=== PATIENT | female | born 1945 | race African-American/Black ===

== ENCOUNTER 2017-01-06 16:47 | Emergency (ER) | payer MEDICARE, MEDICAID | END 2017-01-06 18:25 | disposition home or self-care (01) | LOC: ERS 16:47 | DX: Z43.1 Encounter for attention to gastrostomy (principal); E11.9 Type 2 diabetes mellitus without complications; K21.9 Gastro-esophageal reflux disease without esophagitis; F32.9 Major depressive disorder, single episode, unspecified; M15.0 Primary generalized (osteo)arthritis; Z79.899 Other long term (current) drug therapy | CPT/HCPCS: 43760; B4087 ==

== ENCOUNTER 2017-07-31 14:57 | Emergency (ER) | payer MEDICARE, OTHER ==
--- NOTE | 2017-07-31 16:02 | RAD ---
ABDOMEN ONE VIEW: 07/31/17 HISTORY: Tube check. COMPARISON: Radiographs 2017. FINDINGS: Contrast is seen in a tube to the gastric fundus and body. IMPRESSION: Contrast is seen within the stomach. POS: [facility]
[2017-07-31] MEDS ORDERED: GASTROGRAFIN 30 ML BOT ONE (16:42)
== END 2017-07-31 17:46 | disposition home or self-care (01) ==
LOC: ERS 14:57
DX: Z43.1 Encounter for attention to gastrostomy (principal); E11.9 Type 2 diabetes mellitus without complications; K21.9 Gastro-esophageal reflux disease without esophagitis; F03.90 Unspecified dementia, unspecified severity, without behavioral disturbance, psychotic disturbance, mood disturbance, and anxiety; F32.9 Major depressive disorder, single episode, unspecified; Z86.73 Personal history of transient ischemic attack (TIA), and cerebral infarction without residual deficits; Z79.899 Other long term (current) drug therapy
CPT/HCPCS: 43760; 74018

== ENCOUNTER 2018-01-24 12:11 | Observation (INO) | payer MEDICARE, MEDICAID ==
[2018-01-24] MEDS ORDERED: Dextrose 5 %-0.45 % NaCl 1,000 ML IV SCH (15:00)
[2018-01-24] MEDS ORDERED: Dextrose 5% in Water 1,000 ML IV PRN (15:05)
[2018-01-24] MEDS ORDERED: HumaLOG 300 UNITS/3 ML VIAL SC PRN ×2 (15:05)
[2018-01-24] MEDS ORDERED: Dextrose 50% Abboject 50 ML SYRINGE SLOW IVP PRN (15:05)
[2018-01-24] MEDS ORDERED: Acetaminophen 325 MG TAB PO PRN (15:05)
[2018-01-24] MEDS ORDERED: hydrALAZINE 20 MG/ML VIAL SLOW IVP PRN (15:05)
[2018-01-24 15:14] VITALS: BMI 17.6
[2018-01-24] MEDS: Dextrose 5 % And 0.9 % NaCl 1,000 ML IV SCH (16:14)
--- NOTE | 2018-01-24 19:59 | CON ---
DATE OF CONSULTATION: 01/24/2018 GI INPATIENT CONSULTATION NOTE REASON FOR CONSULTATION: PEG tube got pulled out. HISTORY OF PRESENT ILLNESS: Jen Draper is a 72-year-old woman, well known to me. I initially placed her PEG tube back in January 2014. She has profound dementia and adult failure to thrive, though her daughter states she is on a pureed diet still at her halfway. She has had several presentations over the past couple of years after having inadvertently removed her PEG tube; normally, this is always able to be replaced in ER without difficulty. She presents today from the halfway again after having inadvertently yanked her PEG tube. I am not exactly sure when this happened and I think it was earlier this morning. The ER physician attempted to pass a replacement PEG tube through the site, but was unable to do so. I also attempted to do this at bedside, but I was also unable to pass the replacement tube. There is no report of any other issues or symptoms. The patient herself does not meaningfully communicate. PAST MEDICAL HISTORY: Severe Alzheimer dementia, gastroesophageal reflux disease, CVA, diabetes, osteoarthritis, contractures, and depression. SOCIAL HISTORY: She is at a halfway. She has supportive family. No smoking, alcohol, or drug use. FAMILY HISTORY: Noncontributory. ALLERGIES: ASPIRIN AND AVOCADO. MEDICATIONS: 1. Baclofen. 2. MiraLAX. 3. Mirtazapine. 4. Pepcid AC. 5. Tramadol. 6. Trazodone. REVIEW OF SYSTEMS: Unable to obtain from the patient due to her nonverbal status. PHYSICAL EXAMINATION: VITAL SIGNS: Blood pressure 94/69 and pulse 66. GENERAL: 72-year-old woman, lying in bed comfortably, in no acute distress. MENTAL: She is awake and alert, but not oriented. She provides no verbal or otherwise meaningful communication. She does not follow commands. EYES: No scleral icterus. Extraocular movements intact. ENT: Mucous membranes moist. No oral lesions. LYMPH NODES: No submandibular or supraclavicular lymphadenopathy. THYROID: Nontender to palpation. HEART: Regular rate and rhythm. LUNGS: Clear to auscultation bilaterally. ABDOMEN: Nondistended. Bowel sounds are present. The PEG site at the left upper quadrant is irritated with what appears to be some granulation tissue and some stricturing. I am unable to pass a 20-[place]zech replacement PEG tube through the stoma. EXTREMITIES: No peripheral edema. NEUROLOGIC: She has severe contractures, basically lying on her left side in the position. She does not follow commands. VESSELS: Radial pulses 2+ bilaterally. ASSESSMENT AND PLAN: 1. Alzheimer dementia. 2. Adult failure to thrive. 3. Percutaneous endoscopic gastrostomy tube complication, was inadvertently removed. Unfortunately, I am unable to pass a replacement PEG tube at bedside today. The patient is going to need to be admitted for overnight observation, and we will plan to place a new PEG tube in the operating room tomorrow. I have discussed this with Dr. Campos as well as with the patient's family and they are in agreement. I expect if everything goes well, she could be discharged back to her facility later in the day tomorrow or perhaps the following day. Plan is for the patient to be admitted to the hospitalist service. Job ID: [id number]
--- NOTE | 2018-01-24 20:14 | HP ---
PRIMARY CARE PHYSICIAN: Dr. Gutierrez. CHIEF COMPLAINT: The patient pulled PEG tube out. HISTORY OF PRESENT ILLNESS: Ms. Draper is a pleasant 72-year-old female, who has advanced dementia. Her daughter is at the bedside and offers the history. She has been basically noncommunicative since 2008 due to advanced Alzheimer's disease and about 4 years ago, she stopped walking and also had stopped eating and for this reason, a PEG tube was placed in 2013. Since then, she has been residing in a nursing facility. She apparently pulled her PEG tube out once again today. She pulled it out previously back in August and had it replaced. The ER physician tried to replace the PEG tube, but was unable to. Her project specialist, Dr. Peoples, was called and tried to replace it as well, but was not able to either. Apparently, there was quite a bit of resistance that was met. Also noted that the patient has fairly severe contractures as well. For this reason, she is being placed in observation so that the PEG tube can be replaced. REVIEW OF SYSTEMS: This is unobtainable as the patient is nonverbal and unable to give any input. PAST MEDICAL HISTORY: Significant for advanced dementia as well as diabetes mellitus type 2. PAST SURGICAL HISTORY: She has had a as well as the PEG tube placed in 2013. ALLERGIES: TO ASPIRIN AND AVOCADO. SOCIAL HISTORY: She is a nonsmoker and nondrinker. She is common-law and her medical power of contracts attorney is Teodora Draper and this is her daughter. CODE STATUS: She says she "hasn't really thought about it, but knows that she needs to." Therefore, it is a full code. FAMILY HISTORY: Significant for depression, hypertension, diabetes, and heart failure. CURRENT MEDICATIONS: Her current medications are taken from the emergency room records and includes; 1. Baclofen 10 mg per tube twice a day. 2. MiraLAX 17 g daily. 3. Mirtazapine 7.5 mg at bedtime. 4. Pepcid 10 mg as needed. 5. Tramadol 25 mg q.4 as needed. 6. Trazodone 50 mg daily. PHYSICAL EXAMINATION: GENERAL: She is awake and alert. She appears comfortable. She is well-developed and well-nourished; however, she does have contractures in the left hand and wrist as well as both legs. VITAL SIGNS: Blood pressure 137/80, heart rate 78, respiratory rate is 16, temperature is 97.8, and O2 saturation is 98% on room air. HEENT: Her pupils are equal, round, and reactive. Extraocular muscles are intact. Her sclerae are anicteric. THROAT: There is no erythema, no exudates. NECK: No adenopathy. No bruits. LUNGS: Clear to auscultation. No wheezing. No rales. CARDIOVASCULAR: She has a normal S1 and S2. There is no S3 or S4. No murmurs, clicks, or rubs. ABDOMEN: Soft. The PEG tube site was noted. There was no induration, no erythema, no drainage. Bowel sounds are positive. EXTREMITIES: Her legs are contracted, but there is no visible skin breakdown. No lesions. NEUROLOGIC: Difficult to assess. She is disoriented and can move all extremities. SKIN AND INTEGUMENT: Again, no skin breakdown. No rash. LABORATORY DATA: Currently, there are no current lab results for review. ASSESSMENT: This is a 72-year-old female, who has inadvertently dislodged her percutaneous endoscopic gastrostomy tube. They were unable to replace it in the ER possibly due to her contracted status. She will be placed in observation. Gastroenterology will be consulted and hopefully, the percutaneous endoscopic gastrostomy tube can be replaced. 1. Advanced dementia. She is noncommunicative. I spoke with the daughter with regard to advance directives and suggested that she and her family start thinking about these issues, especially when she is stable, that way they do not have to make a rash decision in an emergency and emotional situation. She voiced understanding and says that she is going to talk with her other siblings regarding her advanced directives and code status. 2. Diabetes mellitus. Her daughter says that she is basically diet-controlled now on this. We will just place her on a sliding scale as needed. Job ID: [id number]
[2018-01-25] MEDS: Dextrose 5 % And 0.9 % NaCl 1,000 ML IV SCH ×2 (05:49→17:43)
[2018-01-25 06:47] LABS: Hemoglobin 11.1 g/dL (12.0-16.0); Lymphocytes 50 % (21-51); MDiff Complete? YES; Mean Corpuscular HGB CONC 32.6 g/dL (32.0-36.0); Mean Corpuscular Hemoglobin 29.4 pg (27.0-31.0); Mean Corpuscular Volume 90.3 fL (78.0-98.0); Monocytes 8 % (0-10); Neutrophil 42 % (42-75); Platelet Count 154 thou/uL (130-400); Red Blood Cell (RBC) Count 3.78 mill/uL (4.20-5.40); White Blood Cell (WBC) Count 6.4 thou/uL (4.8-10.8)
[2018-01-25 06:55] LABS: Anion Gap 13 mmol/L (10-20); BUN (Urea Nitrogen) 12 mg/dL (9.8-20.1); Calc. Creatinine Clearance 69 mL/min (70-130); Calcium 9.1 mg/dL (7.8-10.44); Carbon Dioxide 23 mmol/L (23-31); Chloride 111 mmol/L (98-107); Estimated GFR-MDRD Greater than 90; Glucose 111 mg/dL (83-110); Potassium 4.6 mmol/L (3.5-5.1); Sodium 142 mmol/L (136-145)
[2018-01-25] MEDS: Enoxaparin Sodium 40 MG/0.4 ML SYRINGE SC SCH (08:39)
--- NOTE | 2018-01-25 10:50 | PDOC.PN ---
- Subjective Encounter Start Date: 01/25/18 Encounter Start Time: 10:48 -: non-verbal Ms. Draper was seen today in follow-up of dislodged PEG tube. She is resting comfortably. She awakes and smiles. Her daughter is at the bedside. - Objective Resuscitation Status - Order Detail: 01/24/18 14:36 Resuscitation Status Routine Resuscitation Status: FULL: Full Resuscitation MAR Reviewed: Yes Vital Signs & Weight: Vital Signs (12 hours) Temp Pulse Resp BP Pulse Ox 01/25/18 07:39 98.0 F 63 20 114/73 100 01/25/18 04:00 97.4 F L 63 16 129/70 100 01/25/18 00:00 97.3 F L 67 18 126/78 99 Weight Weight 109 lb I&O: 01/24/18 01/25/18 01/26/18 06:59 06:59 06:59 Intake Total 1900 Balance 1900 Result Diagrams: 01/25/18 05:38 01/25/18 05:38 Additional Labs: Accuchecks 01/25/18 01/24/18 01/24/18 05:49 19:32 15:34 POC Glucose 114 H 113 H 75 Phys Exam - Physical Examination HEENT: PERRLA Respiratory: no wheezing, no rales, no rhonchi, clear to auscultation bilateral Cardiovascular: RRR, no significant murmur, no rub Gastrointestinal: soft, no distention, positive bowel sounds + mild tenderness around PEG site Musculoskeletal: no edema, pulses present + Lower extremity contractures Dx/Plan (1) PEG tube malfunction Code(s): K94.23 - GASTROSTOMY MALFUNCTION Status: Acute (2) Diabetes mellitus type 2 in nonobese Code(s): E11.9 - TYPE 2 DIABETES MELLITUS WITHOUT COMPLICATIONS Status: Chronic (3) Dementia in Alzheimer's disease Code(s): G30.9 - ALZHEIMER'S DISEASE, UNSPECIFIED; F02.80 - DEMENTIA IN OTH DISEASES CLASSD ELSWHR W/O BEHAVRL DISTURB Status: Chronic - Plan * Dislodged PEG tube- plan is to have this replaced by [employer] * DM- blood glucose isstable * Advanced Dementia-stable.
[2018-01-25] MEDS ORDERED: CEFAZOLIN 2 GM/50 ML BAG ONE (12:47)
[2018-01-25] MEDS ORDERED: Promethazine HCl 25 MG/ML VIAL IM PRN (13:23)
[2018-01-25] MEDS ORDERED: Ondansetron HCl/PF 4 MG/2 ML Vial IVP PRN (13:23)
[2018-01-25] MEDS ORDERED: Promethazine HCl 25 MG/ML VIAL SLOW IVP PRN (13:23)
[2018-01-25] MEDS ORDERED: CEFAZOLIN 2 GM/50 ML-DEXTROSE 2 GM in Premix Bag 1 BAG IVPB ONE (13:29)
--- NOTE | 2018-01-25 17:04 | OP ---
DATE OF PROCEDURE: 01/25/2018 PROCEDURE PERFORMED: Esophagogastroduodenoscopy with percutaneous gastrostomy tube placement. INDICATION FOR PROCEDURE: Dysphagia, [id number] protein-calorie malnutrition, advanced dementia. DESCRIPTION OF PROCEDURE: After the risks and benefits of the procedure were explained to the patient's surrogate (daughter/medical power of deputy county attorney) including risks of bleeding, infection, perforation, reactions to anesthesia, aspiration, and/or pain, informed consent was obtained. The patient was then taken to the endoscopy suite, where deep sedation was administered via propofol and anesthesia support. Prior to the procedure, 2 g of Ancef was administered via IV piggyback for postsurgical antibiotic prophylaxis. Once adequate sedation was achieved, the standard gastroscope was introduced into the mouth with intubation of the esophagus, stomach, and the proximal small intestines with the findings listed below. After the initial examination, the gastroscope was positioned within the stomach itself with good one-to-one compression and transillumination achieved. Once given these markers, we proceeded with percutaneous gastrostomy tube placement. Using a small finder needle, 1% lidocaine was instilled into the skin at the prior PEG tube site and then placing the needle perpendicular to skin it was advanced with back pressure into the anterior wall of the stomach. The needle was then withdrawn with instillation of copious amounts of lidocaine upon withdrawal. An aspiration needle was then advanced through the prior PEG tube stoma and into the stomach without difficulty. A guidewire was then advanced through the aspiration needle catheter after removal of the needle itself, which was then caught on the inside via snare introduced through the gastroscope. The gastroscope was then withdrawn through the esophagus and the mouth carrying the guidewire with it with maintaining stability of the guidewire at all times. The percutaneous gastrostomy tube was then affixed to the guidewire and using a push technique, it was then advanced into the stomach and through the anterior gastric and abdominal wall with approximately 3.5 cm seen at the skin. The external bumper and adapter were then affixed to the percutaneous gastrostomy tube after cutting to length. The gastroscope was then introduced back into the mouth for evaluation of the stomach with adequate placement of the percutaneous gastrostomy tube that was easily mobile and rotated approximately 720 degrees at which point, all equipment was removed from the patient and the procedure terminated. The patient was then taken to PACU in satisfactory condition. FINDINGS: Esophagus: Normal-appearing mucosa was seen in the proximal mid and distal esophagus. There was no evidence of erosions, ulcerations, mass lesions, or active/recent bleeding. Stomach: Normal-appearing mucosa was seen in the gastric cardia, fundus, body, greater curvature, antrum, and incisura except for the prior PEG tube site, which was noted along the greater curvature near the junction of the fundus and body. The prior PEG tube site appeared to be in a stage of healing without any overt ulceration at the site or bleeding within the region. Otherwise, there was no evidence of erosions, ulcerations, mass lesions, or active/recent bleeding. Duodenum: Normal-appearing mucosa was seen in both the duodenal bulb and second portion of the duodenum. There was no evidence of erosions, ulcerations, or active/recent bleeding. IMPRESSION: 1. Normal upper endoscopy via esophagogastroduodenoscopy findings. 2. Successful placement of a [place] scientific 20-[place] percutaneous gastrostomy tube through the prior percutaneous endoscopic gastrostomy tube site. RECOMMENDATIONS: 1. The patient to be transferred back to [facility] for observation postprocedure. I would pull this patient overnight for any potential postprocedural complications. 2. We would consult dietary services for recommendations regarding tube feeds and rate of tube feeds. 3. We would hold any tube feeds for the next 6 to 8 hours. If no evidence of immediate complications, we then start the tube feeds per PEG tube protocol dictated by dietary services. 4. We would encourage standard PEG tube care including keeping the site clean and as dry as possible, maintaining a 1 cm distance between the external bumper in the skin without the placement of gauze underneath the external bumper, would refrain from any bathing or swimming within the next [address] would place an abdominal binder on this patient and have it maintained at all times given her propensity to remove PEG tubes in the past. We will continue to follow. Please call with any questions. Job ID: [id number]
[2018-01-26] MEDS: Dextrose 5 % And 0.9 % NaCl 1,000 ML IV SCH (06:17)
[2018-01-26] MEDS: Enoxaparin Sodium 40 MG/0.4 ML SYRINGE SC SCH (07:31)
[2018-01-26 12:21] VITALS: BP 144/75; TEMP 98.5
--- NOTE | 2018-01-26 19:23 | DIS ---
DATE OF ADMISSION: 01/24/2018 DATE OF DISCHARGE: 01/26/2018 DISCHARGE DISPOSITION: To [facility]. ALLERGIES: THE PATIENT IS ALLERGIC TO ASPIRIN. THE PATIENT WAS SEEN AND EXAMINED ON THE DAY OF DISCHARGE. DENIES ANY NEW COMPLAINTS. DISCHARGE MEDICATIONS: Same as admission medications. INPATIENT PROCEDURES: 1. On 01/25/2018, the patient underwent esophagogastroduodenoscopy with percutaneous endoscopic gastrostomy tube placement. 2. Abdominal binder has been placed. BRIEF HOSPITAL COURSE: The patient is a 72-year-old female, alf resident, with dementia, was brought into the hospital from the alf since she had pulled the PEG tube. The patient underwent PEG tube placement yesterday without any complications. PEG tube feeding has been resumed. Abdominal binder was recommended by Gastroenterology. FINAL DIAGNOSES: 1. Percutaneous endoscopic gastrostomy tube complication. The percutaneous endoscopic gastrostomy tube was removed by the patient. This has been replaced. 2. Alzheimer dementia. 3. Diabetes mellitus, type 2. 4. Chronic anemia. 5. Moderate protein-calorie malnutrition. PLAN: Plan of care was discussed with the family in detail, they stated understanding. Job ID: [id number]
== END 2018-01-26 13:35 ==
LOC: ERS 12:11 → T4-A 13:53
PROVIDERS: ADMIT Internal Medicine; ATTEND Internal Medicine
PROC: 0DH63UZ Insertion of Feeding Device into Stomach, Percutaneous Approach (ICD-10-PCS; principal; 2018-01-24)
DX: Z43.1 Encounter for attention to gastrostomy (principal); E43 Unspecified severe protein-calorie malnutrition; Z68.1 Body mass index [BMI] 19.9 or less, adult; E11.9 Type 2 diabetes mellitus without complications; D64.9 Anemia, unspecified; G30.9 Alzheimer's disease, unspecified; F02.80 Dementia in other diseases classified elsewhere, unspecified severity, without behavioral disturbance, psychotic disturbance, mood disturbance, and anxiety; Z88.6 Allergy status to analgesic agent; Z91.018 Allergy to other foods; Z79.899 Other long term (current) drug therapy
CPT/HCPCS: 43246; 80048; 82962 ×3; 85025; 96360; 96361 ×3; 96372; 99284; G0378 ×2; 36415; 36416; G8996-GN-CK; J1650

== ENCOUNTER 2018-11-20 07:55 | Emergency (ER) | payer MEDICARE, MEDICAID ==
[2018-11-20 08:44] LABS: #Basophils 0.1 thou/uL (0.0-0.2); #Eosinphils 0.1 thou/uL (0.0-0.7); #Lymphocytes 2.6 thou/uL (1.20-3.40); #Monocytes 0.5 thou/uL (0.11-0.59); #Neutrophils 2.5 thou/uL (1.40-6.50); %Basophils 1.6 % (0.0-1.0); %Eosinophils 1.5 % (0.0-10.0); %Lymphocytes 44.9 % (21.0-51.0); %Monocytes 8.2 % (0.0-10.0); %Neutrophils 43.8 % (42.0-75.0); Hemoglobin 12.2 g/dL (12.0-16.0); Mean Corpuscular HGB CONC 31.9 g/dL (32.0-36.0); Mean Corpuscular Volume 90.7 fL (78.0-98.0); Mean Platelet Volume 8.5 fL (7.4-10.4); Platelet Count 281 thou/uL (130-400); RBC Distribution Width 12.7 % (11.5-14.5); Red Blood Cell (RBC) Count 4.21 mill/uL (4.20-5.40); White Blood Cell (WBC) Count 5.7 thou/uL (4.8-10.8)
[2018-11-20 09:06] LABS: ALT (SGPT) 8 U/L (8-55); AST (SGOT) 14 U/L (5-34); Albumin 3.4 g/dL (3.4-4.8); Alkaline Phosphatase 91 U/L (40-110); Anion Gap 14 mmol/L (10-20); BUN (Urea Nitrogen) 11 mg/dL (9.8-20.1); Bilirubin, Total 0.2 mg/dL (0.2-1.2); Calc. Creatinine Clearance 0 mL/min (70-130); Calcium 9.2 mg/dL (7.8-10.44); Carbon Dioxide 20 mmol/L (23-31); Chloride 108 mmol/L (98-107); Estimated GFR-MDRD Greater than 90; Globulin 3.8 g/dL (2.4-3.5); Glucose 118 mg/dL (83-110); Potassium 4.3 mmol/L (3.5-5.1); Protein, Total 7.2 g/dL (6.0-8.3); Sodium 138 mmol/L (136-145)
[2018-11-20 10:10] LABS: Bacteria/HPF 4+ HPF (None Seen); Bilirubin Negative (Negative); Blood, Urine Trace (Negative); Clarity Turbid (Clear); Glucose, Urine (Dipstick) Normal (Negative); Leukocyte Negative Leu/uL (Negative); Nitrite 2+ (Negative); Protein, Urine (Dipstick) 10 mg/dL (Neg-Trace); Squamous Epithelial 0-3 HPF (0-3)
[2018-11-20] MEDS ORDERED: cefTRIAXone\\ROCEPHIN 1 GM VIAL ONE (10:26)
--- NOTE | 2018-11-20 10:39 | CT ---
CT OF HEAD NONCONTRAST: COMPARISON: 12/22/2013. INDICATION: Altered mental status. FINDINGS: There is persistent dilatation of the ventricular system with severe chronic ischemic disease of the cerebral white matter. No new hemorrhage, mass effect, or midline shift. No depressed calvarial fra cture or pneumocephalus. IMPRESSION: Persistent ventriculomegaly, progressive in volume with prominent periventricular white matter hypoat tenuation. While a component is due to parenchymal atrophy and microvascular ischemic disease, recom mend clinical correlation to exclude signs/symptoms of normal-pressure hydrocephalus given the progre ssive ventriculomegaly from the comparison exam. POS: [facility]
--- NOTE | 2018-11-20 13:06 | RAD ---
FRONTAL VIEW CHEST: INDICATION: AMS. FINDINGS: There is limited evaluation due to patient positioning and inability to tolerate positional adjustmen t for the exam. This does limit evaluation of the upper chest, notably the right apex as well as exc ludes portions of the lung bases. Lungs are hyperinflated without a discrete area of consolidation o r significant effusion. Cardiomediastinal silhouette is accentuated. IMPRESSION: Limited exam. No definite evidence of focal consolidation. POS: [facility]
--- NOTE | 2018-11-23 16:53 | EKG ---
Test Reason : Blood Pressure : / mmHG Vent. Rate : 081 BPM Atrial Rate : 081 BPM P-R Int : 154 ms QRS Dur : 056 ms QT Int : 378 ms P-R-T Axes : 053 -21 -08 degrees QTc Int : 439 ms Sinus rhythm Inferior infarct , age undetermined Abnormal ECG Confirmed by CYNDI COLE DO ([id number]), editor school photograph DARRIN TERRY ([id number]) on 11/23/2018 4:52:35 PM Referred By: Confirmed By:CYNDI COLE DO
== END 2018-11-20 13:43 | disposition home or self-care (01) ==
LOC: ERS 07:55
DX: R56.9 Unspecified convulsions (principal); N30.00 Acute cystitis without hematuria; E11.9 Type 2 diabetes mellitus without complications
CPT/HCPCS: 36415; 36416; 51701; 70450; 71045; 80053; 81003; 81015; 84484; 85025; 93005; 96374; A4353; J0696

== ENCOUNTER 2019-03-08 08:31 | Emergency (ER) | payer MEDICARE, MEDICAID ==
--- NOTE | 2019-03-08 09:49 | RAD ---
Exam: Single view of the pelvis HISTORY: Pelvic and hip pain after being found down on the floor COMPARISON: None FINDINGS: This exam is limited secondary to rotation of the patient's legs. A single view the pelvis shows no evidence of acute fracture or dislocation. No degenerative changes seen in either hip. IMPRESSION: No evidence of acute osseous abnormality on this limited exam.
--- NOTE | 2019-03-08 09:52 | CT ---
EXAM: CT brain without contrast HISTORY: Found down on the floor curled up in a ball. Altered mental status COMPARISON: 11/20/2018 TECHNIQUE: Multiple contiguous axial images were obtained and a CT of the brain without contrast. FINDINGS: There are scattered hypodensities in the subcortical and periventricular white matter consi stent with small vessel ischemic disease. There is ex vacuo dilatation of the lateral ventricles secondary to cerebral atrophy. There is no evidence of hydrocephalus, intracranial hemorrhage, or ext ra-axial fluid collection. The calvarium and overlying soft tissues are unremarkable. The visualized paranasal sinuses and masto id air cells are well aerated. IMPRESSION: No evidence of acute intracranial abnormality
[2019-03-08 09:54] LABS: ALT (SGPT) 13 U/L (8-55); AST (SGOT) 15 U/L (5-34); Albumin 3.5 g/dL (3.4-4.8); Alkaline Phosphatase 108 U/L (40-110); Anion Gap 13 mmol/L (10-20); BUN (Urea Nitrogen) 13 mg/dL (9.8-20.1); Bilirubin, Total 0.3 mg/dL (0.2-1.2); CK (CPK) 77 U/L (29-168); Calc. Creatinine Clearance 0 mL/min (70-130); Carbon Dioxide 26 mmol/L (23-31); Chloride 107 mmol/L (98-107); Estimated GFR-MDRD Greater than 90; Globulin 3.6 g/dL (2.4-3.5); Glucose 101 mg/dL (83-110); Potassium 4.6 mmol/L (3.5-5.1); Protein, Total 7.1 g/dL (6.0-8.3); Sodium 141 mmol/L (136-145)
[2019-03-08 10:07] LABS: #Eosinphils 0.1 thou/uL (0.0-0.7); #Lymphocytes 2.4 thou/uL (1.20-3.40); #Monocytes 0.4 thou/uL (0.11-0.59); #Neutrophils 3.5 thou/uL (1.40-6.50); %Basophils 0.7 % (0.0-1.0); %Eosinophils 1.1 % (0.0-10.0); %Monocytes 6.3 % (0.0-10.0); Hemoglobin 12.3 g/dL (12.0-16.0); Mean Corpuscular HGB CONC 31.7 g/dL (32.0-36.0); Mean Corpuscular Hemoglobin 29.1 pg (27.0-31.0); Mean Corpuscular Volume 91.6 fL (78.0-98.0); Mean Platelet Volume 8.8 fL (7.4-10.4); Platelet Count 240 thou/uL (130-400); Red Blood Cell (RBC) Count 4.22 mill/uL (4.20-5.40); White Blood Cell (WBC) Count 6.4 thou/uL (4.8-10.8)
--- NOTE | 2019-03-08 11:02 | RAD ---
EXAM: Single view of the chest HISTORY: Found on floor with altered mental status. COMPARISON: 11/20/2018 FINDINGS: Single view of the chest shows a normal sized cardiomediastinal silhouette. Lucent line pr ojecting over the left chest wall likely represent skin folds as lung markings are seen peripheral to these lines. There is no evidence of consolidation, mass, or pleural effusion. The bones are unre markable. IMPRESSION: No evidence of acute cardiopulmonary disease
[2019-03-08 13:24] LABS: Bacteria/HPF 2+ HPF (None Seen); Bilirubin Negative (Negative); Blood, Urine 1+ (Negative); Clarity Turbid (Clear); Glucose, Urine (Dipstick) Normal (Negative); Leukocyte 500 Leu/uL (Negative); Nitrite 2+ (Negative); Protein, Urine (Dipstick) Negative (Neg-Trace); Squamous Epithelial None Seen HPF (0-3); Urobilinogen Normal mg/dL (Less than 2)
== END 2019-03-08 15:58 | disposition home or self-care (01) ==
LOC: ERS 08:31
DX: N39.0 Urinary tract infection, site not specified (principal); M19.90 Unspecified osteoarthritis, unspecified site; E11.9 Type 2 diabetes mellitus without complications; K21.9 Gastro-esophageal reflux disease without esophagitis; G30.9 Alzheimer's disease, unspecified; F02.80 Dementia in other diseases classified elsewhere, unspecified severity, without behavioral disturbance, psychotic disturbance, mood disturbance, and anxiety; F32.9 Major depressive disorder, single episode, unspecified; Z86.73 Personal history of transient ischemic attack (TIA), and cerebral infarction without residual deficits; Z79.899 Other long term (current) drug therapy
CPT/HCPCS: 36415; 51701; 70450; 71045; 72170; 80053; 81003; 81015; 82550; 84484; 85025; 93005; A4353

== ENCOUNTER 2020-03-31 13:46 | Inpatient (IN) | payer MEDICARE, MEDICAID ==
[2020-03-31] MEDS ORDERED: cefTRIAXone\\ROCEPHIN 2 GM VIAL ONE (14:13)
[2020-03-31 14:19] LABS: #Basophils 0.1 thou/uL (0.0-0.2); #Lymphocytes 1.4 thou/uL (1.20-3.40); #Monocytes 0.9 thou/uL (0.11-0.59); #Neutrophils 9.1 thou/uL (1.40-6.50); %Basophils 0.5 % (0.0-1.0); %Eosinophils 0.1 % (0.0-10.0); %Lymphocytes 12.5 % (21.0-51.0); %Monocytes 7.4 % (0.0-10.0); %Neutrophils 79.5 % (42.0-75.0); Hemoglobin 11.8 g/dL (12.0-16.0); Mean Corpuscular HGB CONC 30.9 g/dL (32.0-36.0); Mean Corpuscular Hemoglobin 28.5 pg (27.0-31.0); Mean Corpuscular Volume 92.3 fL (78.0-98.0); Mean Platelet Volume 9.9 fL (7.4-10.4); Platelet Count 292 thou/uL (130-400); RBC Distribution Width 12.9 % (11.5-14.5); Red Blood Cell (RBC) Count 4.15 mill/uL (4.20-5.40); White Blood Cell (WBC) Count 11.4 thou/uL (4.8-10.8)
[2020-03-31 14:24] LABS: Prothrombin Time 13.4 sec (12.0-14.7)
[2020-03-31 14:25] LABS: PTT 31.9 sec (22.9-36.1)
[2020-03-31 14:31] LABS: Bacteria/HPF 4+ HPF (None Seen); Bilirubin Negative (Negative); Blood, Urine 2+ (Negative); Clarity Clear (Clear); Glucose, Urine (Dipstick) Greater than 1000 mg/dL (Negative); Ketone, Urine 10 mg/dL (Negative); Leukocyte Negative Leu/uL (Negative); Nitrite Negative (Negative); Protein, Urine (Dipstick) Negative (Neg-Trace); Squamous Epithelial 0-3 HPF (0-3); Urobilinogen Normal mg/dL (Less than 2); pH, Urine 5.5 (5.0-9.0)
[2020-03-31 14:38] LABS: ALT (SGPT) 14 U/L (8-55); AST (SGOT) 16 U/L (5-34); Albumin 2.9 g/dL (3.4-4.8); Alkaline Phosphatase 110 U/L (40-110); Anion Gap 15 mmol/L (10-20); BUN (Urea Nitrogen) 28 mg/dL (9.8-20.1); Bilirubin, Total 0.2 mg/dL (0.2-1.2); Calc. Creatinine Clearance 0 mL/min (70-130); Calcium 8.6 mg/dL (7.8-10.44); Carbon Dioxide 30 mmol/L (23-31); Chloride 113 mmol/L (98-107); Globulin 3.9 g/dL (2.4-3.5); Lipase 26 U/L (8-78); Potassium 3.8 mmol/L (3.5-5.1); Protein, Total 6.8 g/dL (5.8-8.1); Sodium 154 mmol/L (136-145)
[2020-03-31 14:48] LABS: Glucose 692 mg/dL (83-110)
[2020-03-31] MEDS ORDERED: Insulin Regular 300 UNITS/3 ML VIAL ONE ×2 (15:11→15:12)
[2020-03-31] MEDS ORDERED: INSULIN REGULAR IN 0.9 % NACL 100 UNIT/100 ML BAG ONE (15:11)
[2020-03-31] MEDS ORDERED: Insulin Regular 100 units/100 ml in NS IVPB SCH (15:15)
[2020-03-31] MEDS ORDERED: Potassium Chloride 20 MEQ in Premix Bag 1 BAG IVPB SCH (15:15)
[2020-03-31] MEDS ORDERED: Insulin Regular 300 UNITS/3 ML VIAL SC SCH (15:15)
[2020-03-31] MEDS ORDERED: 1/2 NS w/KCL 20 mEq 1,000 ML IV SCH (15:30)
[2020-03-31] MEDS ORDERED: INSULIN REGULAR IN 0.9 % NACL 100 UNIT in Premix Bag 1 BAG IVPB SCH (15:30)
[2020-03-31] MEDS ORDERED: NS 0.9% w/ 20 MEQ KCL 1,000 ML IV SCH (15:30)
[2020-03-31 15:34] LABS: Phosphorus 2.9 mg/dL (2.3-4.7)
[2020-03-31] MEDS ORDERED: Ondansetron PF 4 MG/2 ML Vial IVP PRN (16:00)
[2020-03-31] MEDS ORDERED: Polyethylene Glycol 3350 17 GM Packet PER TUBE PRN (16:53)
[2020-03-31 17:18] LABS: SARS-CoV-2 NAA Rapid Test Not Detected (NotDetected)
[2020-03-31 17:27] LABS: Hemoglobin A1c 8.2 % (4.0-6.0)
[2020-03-31 17:54] LABS: Anion Gap 17 mmol/L (10-20); BUN (Urea Nitrogen) 25 mg/dL (9.8-20.1); Calc. Creatinine Clearance 0 mL/min (70-130); Calcium 8.2 mg/dL (7.8-10.44); Carbon Dioxide 25 mmol/L (23-31); Chloride 118 mmol/L (98-107); Glucose 441 mg/dL (83-110); Potassium 4.4 mmol/L (3.5-5.1); Sodium 156 mmol/L (136-145)
[2020-03-31 19:30] VITALS: BMI 16.7
[2020-03-31] MEDS: Baclofen 10 MG TAB PER TUBE SCH ×2 (21:20→21:42)
[2020-03-31] MEDS ORDERED: Dextrose 50% Abboject 50 ML SYRINGE SLOW IVP PRN (21:45)
[2020-03-31] MEDS ORDERED: HUMULIN R 100 UNITS in Sodium Chloride 0.9% 100 ML IVPB SCH (21:45)
[2020-03-31] MEDS ORDERED: Dextrose 5% in Water 1,000 ML IV PRN (21:45)
[2020-03-31] MEDS ORDERED: Dextrose 5 %-0.45 % NaCl 1,000 ML IV PRN (21:45)
[2020-03-31] MEDS ORDERED: NS 0.9% w/ 20 MEQ KCL 1,000 ML/1,000 ML BAG IV PRN ×2 (21:45)
[2020-03-31] MEDS ORDERED: ADD ELECTROLYTE REPLACEMENT SET TO PROFILE FS SCH (21:45)
[2020-03-31] MEDS ORDERED: Insulin Regular 300 UNITS/3 ML VIAL IVP SCH (21:45)
[2020-03-31] MEDS ORDERED: Sodium Chloride 0.9% 1,000 ML IV PRN ×4 (21:45)
[2020-03-31 22:41] LABS: Anion Gap 12 mmol/L (10-20); BUN (Urea Nitrogen) 22 mg/dL (9.8-20.1); Calc. Creatinine Clearance 64 mL/min (70-130); Calcium 8.2 mg/dL (7.8-10.44); Carbon Dioxide 29 mmol/L (23-31); Chloride 121 mmol/L (98-107); Glucose 181 mg/dL (83-110); Sodium 158 mmol/L (136-145)
[2020-03-31 23:25] LABS: Base Excess-Venous 6.7 mmol/L (-2.0 to 3.0); Bicarbonate (HCO3v) 30.7 mmol/L (22.0-28.0); CO2 Tension (PvCO2) 40.8 mmHg (40.0-50.0); Calcium, Ionized 1.01 mmol/L (1.15-1.33); Chloride 120 mmol/L (98-107); Hemoglobin - Calc 13.6 g/dL (12.0-16.0); Potassium 3.9 mmol/L (3.5-5.1); Sodium 159 mmol/L (138-145); vO2 Saturation-calc 99.6 % (60.0-85.0)
[2020-03-31] MEDS: D5 1/2 NS w/20 mEq KCL 1,000 ML IV PRN (23:44)
[2020-04-01] MEDS ORDERED: Insulin Glargine 5 UNITS in Pre-Filled Syringe 1 EACH SC SCH (00:30)
[2020-04-01 01:46] LABS: Anion Gap 12 mmol/L (10-20); BUN (Urea Nitrogen) 20 mg/dL (9.8-20.1); Calc. Creatinine Clearance 70 mL/min (70-130); Carbon Dioxide 25 mmol/L (23-31); Chloride 122 mmol/L (98-107); Glucose 265 mg/dL (83-110); Potassium 4.5 mmol/L (3.5-5.1); Sodium 154 mmol/L (136-145)
[2020-04-01] MEDS ORDERED: HumaLOG 300 UNITS/3 ML VIAL SC PRN (02:30)
[2020-04-01] MEDS ORDERED: Dextrose 5% in Water 1,000 ML IV PRN (02:30)
[2020-04-01] MEDS ORDERED: Dextrose 50% Abboject 50 ML SYRINGE SLOW IVP PRN (02:30)
[2020-04-01] MEDS: HumaLOG 300 UNITS/3 ML VIAL SC PRN ×6 (02:50→20:47)
[2020-04-01] MEDS: D5 1/2 NS w/20 mEq KCL 1,000 ML IV PRN ×4 (04:18→19:38)
[2020-04-01 05:27] LABS: #Lymphocytes 3.7 thou/uL (1.20-3.40); #Monocytes 1.1 thou/uL (0.11-0.59); #Neutrophils 10.2 thou/uL (1.40-6.50); %Basophils 0.1 % (0.0-1.0); %Eosinophils 0.2 % (0.0-10.0); %Lymphocytes 24.8 % (21.0-51.0); %Neutrophils 67.9 % (42.0-75.0); Mean Corpuscular HGB CONC 30.5 g/dL (32.0-36.0); Mean Corpuscular Hemoglobin 28.4 pg (27.0-31.0); Mean Platelet Volume 9.6 fL (7.4-10.4); Platelet Count 223 thou/uL (130-400); RBC Distribution Width 12.7 % (11.5-14.5); Red Blood Cell (RBC) Count 3.53 mill/uL (4.20-5.40); White Blood Cell (WBC) Count 15.1 thou/uL (4.8-10.8)
[2020-04-01 05:46] LABS: Anion Gap 12 mmol/L (10-20); BUN (Urea Nitrogen) 16 mg/dL (9.8-20.1); Calc. Creatinine Clearance 66 mL/min (70-130); Calcium 7.8 mg/dL (7.8-10.44); Carbon Dioxide 24 mmol/L (23-31); Chloride 122 mmol/L (98-107); Glucose 267 mg/dL (83-110); Potassium 4.2 mmol/L (3.5-5.1); Sodium 154 mmol/L (136-145)
[2020-04-01] MEDS: Baclofen 10 MG TAB PER TUBE SCH ×2 (08:17→21:48)
[2020-04-01] MEDS: Multivitamin W/ Minerals 1 TAB PER TUBE SCH (08:17)
[2020-04-01] MEDS: Famotidine 20 MG TAB PER TUBE SCH (08:17)
[2020-04-01] MEDS: Enoxaparin Sodium 40 MG/0.4 ML SYRINGE SC SCH (08:17)
[2020-04-01] MEDS ORDERED: Dextrose 50% Abboject 50 ML SYRINGE ONE (10:47)
[2020-04-01 12:28] LABS: Anion Gap 9 mmol/L (10-20); BUN (Urea Nitrogen) 12 mg/dL (9.8-20.1); Calc. Creatinine Clearance 79 mL/min (70-130); Calcium 7.7 mg/dL (7.8-10.44); Carbon Dioxide 23 mmol/L (23-31); Chloride 122 mmol/L (98-107); Glucose 180 mg/dL (83-110); Potassium 4.2 mmol/L (3.5-5.1); Sodium 150 mmol/L (136-145)
[2020-04-01] MEDS: cefTRIAXone\\ROCEPHIN 2 GM in Sodium Chloride 0.9% 100 ML IVPB SCH (14:17)
[2020-04-01] MEDS: Sodium Chloride 0.45% 1,000 ML IV SCH (21:48)
[2020-04-02] MEDS ORDERED: Sodium Chloride 0.45% 1,000 ML IV SCH (11:15)
[2020-04-02] MEDS ORDERED: metFORMIN 500 MG TAB PO SCH ×2 (11:15→17:00)
[2020-04-02] MEDS: Sodium Chloride 0.9% 1,000 ML IV SCH (12:00)
[2020-04-02 14:56] LABS: Anion Gap 11 mmol/L (10-20); BUN (Urea Nitrogen) 5 mg/dL (9.8-20.1); Calc. Creatinine Clearance 79 mL/min (70-130); Carbon Dioxide 22 mmol/L (23-31); Chloride 113 mmol/L (98-107); Glucose 99 mg/dL (83-110); Potassium 4.3 mmol/L (3.5-5.1); Sodium 142 mmol/L (136-145)
[2020-04-02] MEDS: Famotidine 20 MG TAB PER TUBE SCH (15:45)
[2020-04-02] MEDS: Multivitamin W/ Minerals 1 TAB PER TUBE SCH (15:46)
[2020-04-02] MEDS: Enoxaparin Sodium 40 MG/0.4 ML SYRINGE SC SCH (15:47)
[2020-04-02] MEDS: Baclofen 10 MG TAB PER TUBE SCH ×2 (15:47→22:08)
[2020-04-02] MEDS: cefTRIAXone\\ROCEPHIN 2 GM in Sodium Chloride 0.9% 100 ML IVPB SCH (15:48)
[2020-04-02] MEDS: Sodium Chloride 0.45% 1,000 ML IV SCH (16:23)
[2020-04-02] MEDS: metFORMIN 500 MG TAB PO SCH (19:42)
[2020-04-02] MEDS: Acetaminophen 325 MG TAB PO PRN (19:42)
[2020-04-03 05:40] LABS: Anion Gap 12 mmol/L (10-20); BUN (Urea Nitrogen) 6 mg/dL (9.8-20.1); Calc. Creatinine Clearance 74 mL/min (70-130); Carbon Dioxide 23 mmol/L (23-31); Chloride 109 mmol/L (98-107); Glucose 166 mg/dL (83-110); Potassium 3.6 mmol/L (3.5-5.1); Sodium 140 mmol/L (136-145)
[2020-04-03] MEDS: Famotidine 20 MG TAB PER TUBE SCH (11:23)
[2020-04-03] MEDS: metFORMIN 500 MG TAB PO SCH ×2 (11:23→18:17)
[2020-04-03] MEDS: Multivitamin W/ Minerals 1 TAB PER TUBE SCH (11:24)
[2020-04-03] MEDS: Enoxaparin Sodium 40 MG/0.4 ML SYRINGE SC SCH (11:24)
[2020-04-03] MEDS: Baclofen 10 MG TAB PER TUBE SCH ×2 (11:28→20:59)
[2020-04-03] MEDS: Sodium Chloride 0.9% 1,000 ML IV SCH (16:30)
[2020-04-03] MEDS: HumaLOG 300 UNITS/3 ML VIAL SC PRN (16:37)
[2020-04-03] MEDS: Sulfameth/Trimethoprim DS 800-160mg TAB PO SCH (20:59)
[2020-04-04] MEDS: HumaLOG 300 UNITS/3 ML VIAL SC PRN ×3 (06:10→17:30)
[2020-04-04] MEDS: Baclofen 10 MG TAB PER TUBE SCH ×2 (08:56→22:27)
[2020-04-04] MEDS: Sulfameth/Trimethoprim DS 800-160mg TAB PO SCH ×2 (08:56→22:27)
[2020-04-04] MEDS: Multivitamin W/ Minerals 1 TAB PER TUBE SCH (08:56)
[2020-04-04] MEDS: Famotidine 20 MG TAB PER TUBE SCH (08:56)
[2020-04-04] MEDS: metFORMIN 500 MG TAB PO SCH ×2 (08:56→17:18)
[2020-04-04] MEDS: Enoxaparin Sodium 40 MG/0.4 ML SYRINGE SC SCH (08:57)
[2020-04-05] MEDS: Acetaminophen 325 MG TAB PO PRN ×2 (02:37→21:09)
[2020-04-05] MEDS: HumaLOG 300 UNITS/3 ML VIAL SC PRN ×2 (06:37→12:18)
[2020-04-05] MEDS: Famotidine 20 MG TAB PER TUBE SCH (08:42)
[2020-04-05] MEDS: Sulfameth/Trimethoprim DS 800-160mg TAB PO SCH ×2 (08:43→21:07)
[2020-04-05] MEDS: Multivitamin W/ Minerals 1 TAB PER TUBE SCH (08:43)
[2020-04-05] MEDS: Baclofen 10 MG TAB PER TUBE SCH ×2 (08:43→21:07)
[2020-04-05] MEDS: Enoxaparin Sodium 40 MG/0.4 ML SYRINGE SC SCH (08:43)
[2020-04-05] MEDS: metFORMIN 500 MG TAB PO SCH ×2 (08:43→17:04)
[2020-04-05] MEDS ORDERED: metFORMIN 500 MG TAB PO SCH ×3 (09:30→09:45)
[2020-04-06 06:35] LABS: Anion Gap 11 mmol/L (10-20); BUN (Urea Nitrogen) 13 mg/dL (9.8-20.1); Calc. Creatinine Clearance 65 mL/min (70-130); Calcium 8.5 mg/dL (7.8-10.44); Carbon Dioxide 26 mmol/L (23-31); Chloride 104 mmol/L (98-107); Glucose 162 mg/dL (83-110); Potassium 4.5 mmol/L (3.5-5.1); Sodium 136 mmol/L (136-145)
[2020-04-06] MEDS: Enoxaparin Sodium 40 MG/0.4 ML SYRINGE SC SCH (08:56)
[2020-04-06] MEDS: Baclofen 10 MG TAB PER TUBE SCH ×2 (08:57→20:56)
[2020-04-06] MEDS: Famotidine 20 MG TAB PER TUBE SCH (08:57)
[2020-04-06] MEDS: metFORMIN 500 MG TAB PO SCH ×2 (08:57→16:23)
[2020-04-06] MEDS: Multivitamin W/ Minerals 1 TAB PER TUBE SCH (08:57)
[2020-04-06] MEDS: Sulfameth/Trimethoprim DS 800-160mg TAB PO SCH ×2 (08:58→20:56)
[2020-04-06] MEDS: HumaLOG 300 UNITS/3 ML VIAL SC PRN (12:41)
[2020-04-07] MEDS: HumaLOG 300 UNITS/3 ML VIAL SC PRN (05:54)
[2020-04-07] MEDS ORDERED: Polyethylene Glycol 3350 17 GM Packet PER TUBE PRN (08:30)
[2020-04-07] MEDS: Multivitamin W/ Minerals 1 TAB PER TUBE SCH (08:51)
[2020-04-07] MEDS: Baclofen 10 MG TAB PER TUBE SCH ×2 (08:51→20:22)
[2020-04-07] MEDS: metFORMIN 500 MG TAB PO SCH ×2 (08:51→17:03)
[2020-04-07] MEDS: Enoxaparin Sodium 40 MG/0.4 ML SYRINGE SC SCH (08:52)
[2020-04-07] MEDS: Famotidine 20 MG TAB PER TUBE SCH (08:52)
[2020-04-07] MEDS: Polyethylene Glycol 3350 17 GM Packet PER TUBE SCH (08:52)
[2020-04-07] MEDS: Acetaminophen 325 MG TAB PO PRN (20:22)
[2020-04-08] MEDS: HumaLOG 300 UNITS/3 ML VIAL SC PRN (05:25)
[2020-04-08 06:37] LABS: #Basophils 0.1 thou/uL (0.0-0.2); #Eosinphils 0.1 thou/uL (0.0-0.7); #Monocytes 0.8 thou/uL (0.11-0.59); #Neutrophils 6.5 thou/uL (1.40-6.50); %Basophils 0.6 % (0.0-1.0); %Eosinophils 1.3 % (0.0-10.0); %Lymphocytes 21.4 % (21.0-51.0); %Monocytes 8.3 % (0.0-10.0); %Neutrophils 68.3 % (42.0-75.0); Hemoglobin 10.5 g/dL (12.0-16.0); Mean Corpuscular HGB CONC 32.1 g/dL (32.0-36.0); Mean Corpuscular Hemoglobin 28.4 pg (27.0-31.0); Mean Corpuscular Volume 88.6 fL (78.0-98.0); Platelet Count 366 thou/uL (130-400); RBC Distribution Width 13.2 % (11.5-14.5); White Blood Cell (WBC) Count 9.5 thou/uL (4.8-10.8)
[2020-04-08 06:52] LABS: Anion Gap 12 mmol/L (10-20); BUN (Urea Nitrogen) 15 mg/dL (9.8-20.1); Calc. Creatinine Clearance 63 mL/min (70-130); Calcium 9.1 mg/dL (7.8-10.44); Carbon Dioxide 25 mmol/L (23-31); Chloride 102 mmol/L (98-107); Glucose 194 mg/dL (83-110); Potassium 4.3 mmol/L (3.5-5.1); Sodium 135 mmol/L (136-145)
[2020-04-08] MEDS: Multivitamin W/ Minerals 1 TAB PER TUBE SCH (08:04)
[2020-04-08] MEDS: metFORMIN 500 MG TAB PO SCH ×2 (08:04→16:47)
[2020-04-08] MEDS: Baclofen 10 MG TAB PER TUBE SCH ×2 (08:04→23:01)
[2020-04-08] MEDS: Famotidine 20 MG TAB PER TUBE SCH (08:04)
[2020-04-08] MEDS: Enoxaparin Sodium 40 MG/0.4 ML SYRINGE SC SCH (08:04)
[2020-04-08] MEDS: Polyethylene Glycol 3350 17 GM Packet PER TUBE SCH (08:15)
[2020-04-09] MEDS: Multivitamin W/ Minerals 1 TAB PER TUBE SCH (08:02)
[2020-04-09] MEDS: Polyethylene Glycol 3350 17 GM Packet PER TUBE SCH (08:02)
[2020-04-09] MEDS: Famotidine 20 MG TAB PER TUBE SCH (08:02)
[2020-04-09] MEDS: Baclofen 10 MG TAB PER TUBE SCH ×2 (08:02→22:13)
[2020-04-09] MEDS: metFORMIN 500 MG TAB PO SCH ×2 (08:02→16:19)
[2020-04-09] MEDS: Enoxaparin Sodium 40 MG/0.4 ML SYRINGE SC SCH (08:02)
[2020-04-09] MEDS ORDERED: Sulfameth/Trimethoprim DS 800-160mg TAB PO SCH ×2 (10:20→21:00)
[2020-04-09] MEDS ORDERED: Senokot S 8.6-50 MG TAB PO SCH (14:15)
[2020-04-09] MEDS: Senokot S 8.6-50 MG TAB PO SCH (22:12)
[2020-04-09] MEDS: Sulfameth/Trimethoprim DS 800-160mg TAB PO SCH (22:12)
[2020-04-10] MEDS: metFORMIN 500 MG TAB PO SCH ×2 (08:00→16:37)
[2020-04-10] MEDS: Baclofen 10 MG TAB PER TUBE SCH ×2 (08:00→22:34)
[2020-04-10] MEDS: Multivitamin W/ Minerals 1 TAB PER TUBE SCH (08:00)
[2020-04-10] MEDS: Enoxaparin Sodium 40 MG/0.4 ML SYRINGE SC SCH (08:00)
[2020-04-10] MEDS: Polyethylene Glycol 3350 17 GM Packet PER TUBE SCH (08:00)
[2020-04-10] MEDS: Sulfameth/Trimethoprim DS 800-160mg TAB PO SCH ×2 (08:00→22:35)
[2020-04-10] MEDS: Famotidine 20 MG TAB PER TUBE SCH (08:01)
[2020-04-10] MEDS: Senokot S 8.6-50 MG TAB PO SCH ×2 (08:03→22:34)
[2020-04-11] MEDS: Baclofen 10 MG TAB PER TUBE SCH ×2 (10:14→20:33)
[2020-04-11] MEDS: Polyethylene Glycol 3350 17 GM Packet PER TUBE SCH ×2 (10:15→20:33)
[2020-04-11] MEDS: Multivitamin W/ Minerals 1 TAB PER TUBE SCH (10:15)
[2020-04-11] MEDS: Enoxaparin Sodium 40 MG/0.4 ML SYRINGE SC SCH (10:15)
[2020-04-11] MEDS: Famotidine 20 MG TAB PER TUBE SCH (10:15)
[2020-04-11] MEDS: Sulfameth/Trimethoprim DS 800-160mg TAB PO SCH ×2 (10:15→20:33)
[2020-04-11] MEDS: metFORMIN 500 MG TAB PO SCH ×2 (10:15→17:05)
[2020-04-11] MEDS: Senokot S 8.6-50 MG TAB PO SCH ×2 (10:15→20:33)
[2020-04-12] MEDS: Sulfameth/Trimethoprim DS 800-160mg TAB PO SCH ×2 (07:45→20:41)
[2020-04-12] MEDS: Baclofen 10 MG TAB PER TUBE SCH ×2 (07:45→20:41)
[2020-04-12] MEDS: Multivitamin W/ Minerals 1 TAB PER TUBE SCH (07:45)
[2020-04-12] MEDS: Famotidine 20 MG TAB PER TUBE SCH (07:45)
[2020-04-12] MEDS: Enoxaparin Sodium 40 MG/0.4 ML SYRINGE SC SCH (07:46)
[2020-04-12] MEDS: Polyethylene Glycol 3350 17 GM Packet PER TUBE SCH ×2 (07:46→20:41)
[2020-04-12] MEDS: metFORMIN 500 MG TAB PO SCH ×2 (07:46→17:49)
[2020-04-12] MEDS: Senokot S 8.6-50 MG TAB PO SCH ×2 (07:47→20:40)
[2020-04-13] MEDS: Baclofen 10 MG TAB PER TUBE SCH ×2 (08:05→21:30)
[2020-04-13] MEDS: Famotidine 20 MG TAB PER TUBE SCH (08:05)
[2020-04-13] MEDS: metFORMIN 500 MG TAB PO SCH ×2 (08:05→17:05)
[2020-04-13] MEDS: Enoxaparin Sodium 40 MG/0.4 ML SYRINGE SC SCH (08:05)
[2020-04-13] MEDS: Senokot S 8.6-50 MG TAB PO SCH ×2 (08:06→19:34)
[2020-04-13] MEDS: Sulfameth/Trimethoprim DS 800-160mg TAB PO SCH ×2 (08:06→21:30)
[2020-04-13] MEDS: Polyethylene Glycol 3350 17 GM Packet PER TUBE SCH ×2 (08:06→19:33)
[2020-04-13] MEDS: Multivitamin W/ Minerals 1 TAB PER TUBE SCH (08:06)
[2020-04-14] MEDS: Sulfameth/Trimethoprim DS 800-160mg TAB PO SCH ×2 (09:25→21:44)
[2020-04-14] MEDS: Enoxaparin Sodium 40 MG/0.4 ML SYRINGE SC SCH (09:25)
[2020-04-14] MEDS: Famotidine 20 MG TAB PER TUBE SCH (09:25)
[2020-04-14] MEDS: Baclofen 10 MG TAB PER TUBE SCH ×2 (09:26→21:44)
[2020-04-14] MEDS: Multivitamin W/ Minerals 1 TAB PER TUBE SCH (09:26)
[2020-04-14] MEDS: metFORMIN 500 MG TAB PO SCH ×2 (09:29→17:18)
[2020-04-14] MEDS: Polyethylene Glycol 3350 17 GM Packet PER TUBE SCH ×2 (09:29→20:13)
[2020-04-14] MEDS: Senokot S 8.6-50 MG TAB PO SCH ×2 (09:30→20:13)
[2020-04-15] MEDS: metFORMIN 500 MG TAB PO SCH ×2 (08:58→17:18)
[2020-04-15] MEDS: Sulfameth/Trimethoprim DS 800-160mg TAB PO SCH ×2 (08:58→20:52)
[2020-04-15] MEDS: Baclofen 10 MG TAB PER TUBE SCH ×2 (08:58→20:51)
[2020-04-15] MEDS: Famotidine 20 MG TAB PER TUBE SCH (08:59)
[2020-04-15] MEDS: Multivitamin W/ Minerals 1 TAB PER TUBE SCH (08:59)
[2020-04-15] MEDS: Acetaminophen 325 MG TAB PO PRN (08:59)
[2020-04-15] MEDS: Senokot S 8.6-50 MG TAB PO SCH ×2 (09:00→20:52)
[2020-04-15] MEDS: Polyethylene Glycol 3350 17 GM Packet PER TUBE SCH ×2 (09:00→20:52)
[2020-04-15] MEDS: Enoxaparin Sodium 40 MG/0.4 ML SYRINGE SC SCH (09:00)
[2020-04-16] MEDS: Senokot S 8.6-50 MG TAB PO SCH ×2 (08:33→20:34)
[2020-04-16] MEDS: Polyethylene Glycol 3350 17 GM Packet PER TUBE SCH ×2 (08:33→20:34)
[2020-04-16] MEDS: Famotidine 20 MG TAB PER TUBE SCH (08:34)
[2020-04-16] MEDS: Baclofen 10 MG TAB PER TUBE SCH ×2 (08:34→20:33)
[2020-04-16] MEDS: Multivitamin W/ Minerals 1 TAB PER TUBE SCH (08:34)
[2020-04-16] MEDS: metFORMIN 500 MG TAB PO SCH ×2 (08:34→17:31)
[2020-04-16] MEDS: Sulfameth/Trimethoprim DS 800-160mg TAB PO SCH ×2 (08:34→20:34)
[2020-04-16] MEDS: Enoxaparin Sodium 40 MG/0.4 ML SYRINGE SC SCH (08:35)
[2020-04-17] MEDS: Baclofen 10 MG TAB PER TUBE SCH ×2 (09:16→21:38)
[2020-04-17] MEDS: Famotidine 20 MG TAB PER TUBE SCH (09:16)
[2020-04-17] MEDS: metFORMIN 500 MG TAB PO SCH ×2 (09:16→17:13)
[2020-04-17] MEDS: Multivitamin W/ Minerals 1 TAB PER TUBE SCH (09:16)
[2020-04-17] MEDS: Enoxaparin Sodium 40 MG/0.4 ML SYRINGE SC SCH (09:16)
[2020-04-17] MEDS: Senokot S 8.6-50 MG TAB PO SCH (09:16)
[2020-04-17] MEDS: Polyethylene Glycol 3350 17 GM Packet PER TUBE SCH (09:16)
[2020-04-17] MEDS ORDERED: Senokot S 8.6-50 MG TAB PO PRN (12:46)
[2020-04-18] MEDS: Famotidine 20 MG TAB PER TUBE SCH (09:57)
[2020-04-18] MEDS: Polyethylene Glycol 3350 17 GM Packet PER TUBE SCH (09:57)
[2020-04-18] MEDS: Multivitamin W/ Minerals 1 TAB PER TUBE SCH (09:58)
[2020-04-18] MEDS: metFORMIN 500 MG TAB PO SCH ×2 (09:58→18:04)
[2020-04-18] MEDS: Baclofen 10 MG TAB PER TUBE SCH ×2 (09:59→20:12)
[2020-04-18] MEDS: Enoxaparin Sodium 40 MG/0.4 ML SYRINGE SC SCH (10:01)
[2020-04-19] MEDS: Polyethylene Glycol 3350 17 GM Packet PER TUBE SCH (08:14)
[2020-04-19] MEDS: Famotidine 20 MG TAB PER TUBE SCH (08:15)
[2020-04-19] MEDS: Multivitamin W/ Minerals 1 TAB PER TUBE SCH (08:15)
[2020-04-19] MEDS: Baclofen 10 MG TAB PER TUBE SCH ×2 (08:15→21:21)
[2020-04-19] MEDS: Enoxaparin Sodium 40 MG/0.4 ML SYRINGE SC SCH (08:15)
[2020-04-19] MEDS: metFORMIN 500 MG TAB PO SCH ×2 (08:16→16:27)
[2020-04-20 04:21] VITALS: BP 117/70; TEMP 98.1
[2020-04-20] MEDS: metFORMIN 500 MG TAB PO SCH (08:45)
[2020-04-20] MEDS: Baclofen 10 MG TAB PER TUBE SCH (08:46)
[2020-04-20] MEDS: Multivitamin W/ Minerals 1 TAB PER TUBE SCH (08:47)
[2020-04-20] MEDS: Polyethylene Glycol 3350 17 GM Packet PER TUBE SCH (08:47)
[2020-04-20] MEDS: Enoxaparin Sodium 40 MG/0.4 ML SYRINGE SC SCH (08:47)
[2020-04-20] MEDS: Famotidine 20 MG TAB PER TUBE SCH (08:47)
== END 2020-04-20 15:29 | DRG 871 ==
LOC: EDSEX → EDBD → ERS 13:46 → CCU 15:19 → T4-A 04-02 14:35
PROVIDERS: ADMIT Family Medicine; ATTEND Family Medicine
DX: A41.59 Other Gram-negative sepsis (principal); G93.41 Metabolic encephalopathy; E87.0 Hyperosmolality and hypernatremia; N39.0 Urinary tract infection, site not specified; K94.23 Gastrostomy malfunction; E44.0 Moderate protein-calorie malnutrition; Z68.1 Body mass index [BMI] 19.9 or less, adult; Z20.822 Contact with and (suspected) exposure to COVID-19; E11.65 Type 2 diabetes mellitus with hyperglycemia; G30.9 Alzheimer's disease, unspecified; F02.80 Dementia in other diseases classified elsewhere, unspecified severity, without behavioral disturbance, psychotic disturbance, mood disturbance, and anxiety; I50.9 Heart failure, unspecified; M19.90 Unspecified osteoarthritis, unspecified site; H10.9 Unspecified conjunctivitis; K21.9 Gastro-esophageal reflux disease without esophagitis; E86.1 Hypovolemia; M24.50 Contracture, unspecified joint; Y84.8 Other medical procedures as the cause of abnormal reaction of the patient, or of later complication, without mention of misadventure at the time of the procedure; R13.12 Dysphagia, oropharyngeal phase; I11.0 Hypertensive heart disease with heart failure; Z88.8 Allergy status to other drugs, medicaments and biological substances; Z91.018 Allergy to other foods; Z79.899 Other long term (current) drug therapy; Z74.01 Bed confinement status; I69.391 Dysphagia following cerebral infarction
CPT/HCPCS: 0240U; 36415; 36416; 51701; 71045; 80048; 80053; 81003; 81015; 82010; 82330; 82803; 83036; 83605; 83690; 83735; 84100; 84484; 85025; 85610; 85730; 87040; 87077; 87086; 87149; 87186; 93005; 94760; 96365; 96366; 96367; J0696; J1650; J1815; J3480; J3490

== ENCOUNTER 2020-06-19 20:31 | Emergency (ER) | payer MEDICARE, MEDICAID | END 2020-06-19 21:40 | LOC: ERS 20:31 | DX: K94.23 Gastrostomy malfunction (principal); M19.90 Unspecified osteoarthritis, unspecified site; E11.9 Type 2 diabetes mellitus without complications; K21.9 Gastro-esophageal reflux disease without esophagitis; Z86.73 Personal history of transient ischemic attack (TIA), and cerebral infarction without residual deficits; Z79.899 Other long term (current) drug therapy; Z79.84 Long term (current) use of oral hypoglycemic drugs | CPT/HCPCS: 99283 ==

== ENCOUNTER 2021-06-18 00:33 | Emergency (ER) | payer MEDICARE, OTHER ==
[2021-06-18] MEDS ORDERED: GASTROGRAFIN 30 ML BOT ONE (09:09)
== END 2021-06-18 02:14 ==
LOC: ERS 00:33
DX: Z46.59 Encounter for fitting and adjustment of other gastrointestinal appliance and device (principal); E11.9 Type 2 diabetes mellitus without complications; M19.90 Unspecified osteoarthritis, unspecified site; K21.9 Gastro-esophageal reflux disease without esophagitis; Z86.73 Personal history of transient ischemic attack (TIA), and cerebral infarction without residual deficits; Z79.84 Long term (current) use of oral hypoglycemic drugs; Z79.899 Other long term (current) drug therapy
CPT/HCPCS: 43762; 74018; Q9963

== ENCOUNTER 2021-06-22 01:39 | Inpatient (IN) | payer MEDICARE, MEDICAID ==
[2021-06-22 02:25] LABS: #Basophils 0.1 thou/uL (0.0-0.2); #Eosinphils 0.1 thou/uL (0.0-0.7); #Lymphocytes 3.2 thou/uL (1.20-3.40); #Neutrophils 7.7 thou/uL (1.40-6.50); %Basophils 0.5 % (0.0-1.0); %Eosinophils 0.5 % (0.0-10.0); %Lymphocytes 26.6 % (21.0-51.0); %Monocytes 8.6 % (0.0-10.0); %Neutrophils 63.8 % (42.0-75.0); Hemoglobin 13.5 g/dL (12.0-16.0); Mean Corpuscular HGB CONC 32.2 g/dL (32.0-36.0); Mean Corpuscular Hemoglobin 30.2 pg (27.0-31.0); Mean Corpuscular Volume 93.9 fL (78.0-98.0); Mean Platelet Volume 9.2 fL (7.4-10.4); Platelet Count 320 thou/uL (130-400); RBC Distribution Width 12.3 % (11.5-14.5); Red Blood Cell (RBC) Count 4.47 mill/uL (4.20-5.40); White Blood Cell (WBC) Count 12.1 thou/uL (4.8-10.8)
[2021-06-22 02:46] LABS: ALT (SGPT) 79 U/L (8-55); AST (SGOT) 47 U/L (5-34); Albumin 3.1 g/dL (3.4-4.8); Alkaline Phosphatase 107 U/L (40-110); Anion Gap 20 mmol/L (10-20); BUN (Urea Nitrogen) 107 mg/dL (9.8-20.1); Bilirubin, Total 0.2 mg/dL (0.2-1.2); Calc. Creatinine Clearance 0 mL/min (70-130); Calcium 9.5 mg/dL (7.8-10.44); Carbon Dioxide 25 mmol/L (23-31); Chloride 109 mmol/L (98-107); Globulin 4.2 g/dL (2.4-3.5); Glucose 242 mg/dL (83-110); Potassium 3.7 mmol/L (3.5-5.1); Protein, Total 7.3 g/dL (5.8-8.1); Sodium 150 mmol/L (136-145)
[2021-06-22] MEDS ORDERED: Cefepime 2 GM VIAL ONE (03:04)
[2021-06-22] MEDS ORDERED: Vancomycin 1 GM/200 ML BAG ONE (03:04)
[2021-06-22 03:38] LABS: Bacteria/HPF 3+ HPF (None Seen); Bilirubin Negative (Negative); Blood, Urine 1+ (Negative); Clarity Clear (Clear); Glucose, Urine (Dipstick) Normal (Negative); Ketone, Urine Negative (Negative); Leukocyte 500 Leu/uL (Negative); Nitrite Negative (Negative); Protein, Urine (Dipstick) Negative (Neg-Trace); Specific Gravity, Urine 1.017 (1.002-1.036); Squamous Epithelial 0-3 HPF (0-3); Urobilinogen Normal mg/dL (Less than 2); WBC/HPF 21-50 HPF (0-3)
[2021-06-22] MEDS ORDERED: Dextrose 50% Abboject 50 ML SYRINGE SLOW IVP PRN (04:08)
[2021-06-22] MEDS ORDERED: Ondansetron PF 4 MG/2 ML Vial IVP PRN (04:08)
[2021-06-22] MEDS ORDERED: Acetaminophen 325 MG TAB PER TUBE PRN (04:08)
[2021-06-22] MEDS ORDERED: Dextrose 5% in Water 1,000 ML IV PRN (04:08)
[2021-06-22] MEDS ORDERED: HumaLOG 300 UNITS/3 ML VIAL SC PRN (04:08)
[2021-06-22 05:39] LABS: Lactic Acid 6.4 mmol/L (0.5-2.2)
[2021-06-22] MEDS: Sodium Chloride 0.45% 1,000 ML IV SCH ×3 (05:58→23:13)
[2021-06-22 07:04] VITALS: BMI 21.6
[2021-06-22] MEDS: Enoxaparin Sodium 40 MG/0.4 ML SYRINGE SC SCH (08:46)
[2021-06-22 10:07] LABS: Lactic Acid 2.9 mmol/L (0.5-2.2)
[2021-06-22 10:13] LABS: Anion Gap 15 mmol/L (10-20); BUN (Urea Nitrogen) 73 mg/dL (9.8-20.1); Calc. Creatinine Clearance 74 mL/min (70-130); Calcium 9.1 mg/dL (7.8-10.44); Carbon Dioxide 27 mmol/L (23-31); Chloride 109 mmol/L (98-107); Glucose 200 mg/dL (83-110); Potassium 3.8 mmol/L (3.5-5.1); Sodium 147 mmol/L (136-145)
[2021-06-22] MEDS: Cefepime 2 GM in Sodium Chloride 0.9% 100 ML IVPB SCH (15:40)
[2021-06-22] MEDS ORDERED: Loperamide HCl 2 MG CAP PER TUBE PRN (15:52)
[2021-06-22] MEDS ORDERED: Sodium Bicarbonate Tab 325 MG TAB PER TUBE PRN (16:00)
[2021-06-22] MEDS ORDERED: Pancrelipase DR 12,000 1 CAP FS PRN (16:00)
[2021-06-22 16:18] LABS: SARS-CoV-2 PCR by NAA Not Detected (NotDetected)
[2021-06-23] MEDS: Cefepime 2 GM in Sodium Chloride 0.9% 100 ML IVPB SCH ×2 (02:44→15:07)
[2021-06-23] MEDS: Vancomycin HCl 1.25 GM in Sodium Chloride 0.9% 250 ML 250 ML IVPB SCH (02:45)
[2021-06-23] MEDS: Sodium Chloride 0.45% 1,000 ML IV SCH (04:48)
[2021-06-23] MEDS: HumaLOG 300 UNITS/3 ML VIAL SC PRN ×2 (05:09→13:12)
[2021-06-23 07:24] LABS: #Eosinphils 0.2 thou/uL (0.0-0.7); #Lymphocytes 2.9 thou/uL (1.20-3.40); #Monocytes 0.6 thou/uL (0.11-0.59); #Neutrophils 8.3 thou/uL (1.40-6.50); %Basophils 0.4 % (0.0-1.0); %Eosinophils 1.4 % (0.0-10.0); %Monocytes 4.6 % (0.0-10.0); %Neutrophils 69.6 % (42.0-75.0); Hemoglobin 13.4 g/dL (12.0-16.0); Mean Corpuscular HGB CONC 31.2 g/dL (32.0-36.0); Mean Corpuscular Volume 96.1 fL (78.0-98.0); Mean Platelet Volume 10.1 fL (7.4-10.4); Platelet Count 204 thou/uL (130-400); RBC Distribution Width 12.4 % (11.5-14.5); Red Blood Cell (RBC) Count 4.48 mill/uL (4.20-5.40); White Blood Cell (WBC) Count 11.9 thou/uL (4.8-10.8)
[2021-06-23] MEDS: Enoxaparin Sodium 40 MG/0.4 ML SYRINGE SC SCH (08:08)
[2021-06-23] MEDS: Empagliflozin 25 MG TAB PO SCH (08:08)
[2021-06-23] MEDS ORDERED: Acetaminophen 500 MG TAB PO PRN (09:26)
[2021-06-23] MEDS ORDERED: Ondansetron ODT 8 MG TAB PER TUBE PRN (09:26)
[2021-06-23] MEDS ORDERED: Acetaminophen 500 MG TAB PER TUBE PRN (09:45)
[2021-06-23 10:04] LABS: Troponin I 0.018 ng/mL (< 0.028)
[2021-06-23 10:34] LABS: Albumin 2.6 g/dL (3.4-4.8)
[2021-06-23 10:35] LABS: Chloride 108 mmol/L (98-107); Sodium 137 mmol/L (136-145)
[2021-06-23 10:36] LABS: Calcium 8.6 mg/dL (7.8-10.44); Glucose 229 mg/dL (83-110)
[2021-06-23 10:37] LABS: Globulin 4.7 g/dL (2.4-3.5); Protein, Total 7.3 g/dL (5.8-8.1)
[2021-06-23 10:38] LABS: Bilirubin, Total 0.4 mg/dL (0.2-1.2); Carbon Dioxide 15 mmol/L (23-31)
[2021-06-23 10:39] LABS: Alkaline Phosphatase 111 U/L (40-110)
[2021-06-23 10:40] LABS: BUN (Urea Nitrogen) 29 mg/dL (9.8-20.1); Calc. Creatinine Clearance 80 mL/min (70-130)
[2021-06-23 10:41] LABS: AST (SGOT) 66 U/L (5-34)
[2021-06-23 10:42] LABS: ALT (SGPT) 84 U/L (8-55)
[2021-06-23 10:48] LABS: Anion Gap 9 mmol/L (10-20)
[2021-06-23] MEDS: metFORMIN 500 MG TAB PO SCH (16:30)
[2021-06-23] MEDS: Senokot S 8.6-50 MG TAB PO SCH (20:23)
[2021-06-23] MEDS: Baclofen 10 MG TAB PER TUBE SCH (20:23)
[2021-06-23] MEDS ORDERED: ARGININE PER TUBE SCH (21:00)
[2021-06-23] MEDS ORDERED: Non-Formulary Item 1 EACH (Amino Acids/Protein Hydrolys [Pro-Stat 64 Liquid] 30 ML Packet PER TUBE SCH (21:00)
[2021-06-23] MEDS ORDERED: [UNRECOGNIZED DRUG - OTHER] PER TUBE SCH (21:00)
[2021-06-23] MEDS ORDERED: GLUTAMINE PER TUBE SCH (21:00)
[2021-06-24] MEDS: Cefepime 2 GM in Sodium Chloride 0.9% 100 ML IVPB SCH ×2 (02:08→15:32)
[2021-06-24 02:48] LABS: Vancomycin, Trough 7.9 ug/mL
[2021-06-24] MEDS: Vancomycin HCl 1.25 GM in Sodium Chloride 0.9% 250 ML 250 ML IVPB SCH (03:02)
[2021-06-24 04:44] LABS: Lactic Acid 1.4 mmol/L (0.5-2.2)
[2021-06-24 04:47] LABS: ALT (SGPT) 84 U/L (8-55); AST (SGOT) 37 U/L (5-34); Alkaline Phosphatase 118 U/L (40-110); Anion Gap 13 mmol/L (10-20); BUN (Urea Nitrogen) 30 mg/dL (9.8-20.1); Bilirubin, Total 0.3 mg/dL (0.2-1.2); Calc. Creatinine Clearance 73 mL/min (70-130); Calcium 9.2 mg/dL (7.8-10.44); Carbon Dioxide 28 mmol/L (23-31); Chloride 107 mmol/L (98-107); Globulin 3.9 g/dL (2.4-3.5); Glucose 237 mg/dL (83-110); Protein, Total 6.9 g/dL (5.8-8.1); Sodium 144 mmol/L (136-145)
[2021-06-24] MEDS: HumaLOG 300 UNITS/3 ML VIAL SC PRN (06:09)
[2021-06-24] MEDS: Enoxaparin Sodium 40 MG/0.4 ML SYRINGE SC SCH (08:31)
[2021-06-24] MEDS: Polyethylene Glycol 3350 17 GM Packet PER TUBE SCH (08:31)
[2021-06-24] MEDS: Zinc Sulfate 220 MG CAP PER TUBE SCH (08:32)
[2021-06-24] MEDS: Ascorbic Acid 500 mg Chewable Tablet PER TUBE SCH (08:32)
[2021-06-24] MEDS: Multivit, Therapeutic 1 TAB PER TUBE SCH (08:32)
[2021-06-24] MEDS: metFORMIN 500 MG TAB PO SCH ×2 (08:32→16:48)
[2021-06-24] MEDS: Famotidine 20 MG TAB PER TUBE SCH (08:32)
[2021-06-24] MEDS: Senokot S 8.6-50 MG TAB PO SCH ×2 (08:32→21:59)
[2021-06-24] MEDS: Baclofen 10 MG TAB PER TUBE SCH ×2 (08:32→21:58)
[2021-06-24] MEDS: Chlorthalidone 25 MG TAB PER TUBE SCH (08:34)
[2021-06-24] MEDS: Empagliflozin 25 MG TAB PO SCH (08:34)
[2021-06-24] MEDS ORDERED: EXENATIDE MICROSPHERES 2 MG/0.85 ML SC SCH (09:00)
[2021-06-24] MEDS ORDERED: [UNRECOGNIZED DRUG - OTHER] SC SCH (09:00)
[2021-06-24] MEDS ORDERED: Vancomycin 1 GM in Premix Bag 1 BAG IVPB SCH (15:00)
[2021-06-25] MEDS: Cefepime 2 GM in Sodium Chloride 0.9% 100 ML IVPB SCH ×2 (02:23→14:46)
[2021-06-25 08:50] VITALS: BP 108/73; TEMP 97.5
[2021-06-25] MEDS: Chlorthalidone 25 MG TAB PER TUBE SCH (09:02)
[2021-06-25] MEDS: Empagliflozin 25 MG TAB PO SCH (09:03)
[2021-06-25] MEDS: metFORMIN 500 MG TAB PO SCH (09:03)
[2021-06-25] MEDS: Zinc Sulfate 220 MG CAP PER TUBE SCH (09:03)
[2021-06-25] MEDS: Polyethylene Glycol 3350 17 GM Packet PER TUBE SCH (09:03)
[2021-06-25] MEDS: Baclofen 10 MG TAB PER TUBE SCH (09:03)
[2021-06-25] MEDS: Enoxaparin Sodium 40 MG/0.4 ML SYRINGE SC SCH (09:04)
[2021-06-25] MEDS: Ascorbic Acid 500 mg Chewable Tablet PER TUBE SCH (09:04)
[2021-06-25] MEDS: Famotidine 20 MG TAB PER TUBE SCH (09:04)
[2021-06-25] MEDS: Senokot S 8.6-50 MG TAB PO SCH (09:04)
[2021-06-25] MEDS: Multivit, Therapeutic 1 TAB PER TUBE SCH (09:04)
== END 2021-06-25 17:50 | DRG 871 ==
LOC: ERS 01:39 → T4-B 03:39
PROVIDERS: ADMIT Internal Medicine; ATTEND Internal Medicine
DX: A41.9 Sepsis, unspecified organism (principal); G93.41 Metabolic encephalopathy; R65.21 Severe sepsis with septic shock; N39.0 Urinary tract infection, site not specified; E87.0 Hyperosmolality and hypernatremia; G82.20 Paraplegia, unspecified; Z20.822 Contact with and (suspected) exposure to COVID-19; I69.320 Aphasia following cerebral infarction; I69.398 Other sequelae of cerebral infarction; K21.9 Gastro-esophageal reflux disease without esophagitis; E11.65 Type 2 diabetes mellitus with hyperglycemia; M15.9 Polyosteoarthritis, unspecified; F32.9 Major depressive disorder, single episode, unspecified; I50.9 Heart failure, unspecified; I11.0 Hypertensive heart disease with heart failure; G30.9 Alzheimer's disease, unspecified; L89.210 Pressure ulcer of right hip, unstageable; F02.80 Dementia in other diseases classified elsewhere, unspecified severity, without behavioral disturbance, psychotic disturbance, mood disturbance, and anxiety; Z93.1 Gastrostomy status; Z88.8 Allergy status to other drugs, medicaments and biological substances; Z91.018 Allergy to other foods; Z79.899 Other long term (current) drug therapy; Z79.84 Long term (current) use of oral hypoglycemic drugs
CPT/HCPCS: 36415; 36416; 70450; 71045; 80053; 80202; 81003; 81015; 83605; 84484; 85025; 87040; 87070; 87077; 87086; 87186; 87205; J0692; J1650; J1815; J3370; J3490; J7050; U0003; U0005

== ENCOUNTER 2021-06-27 11:55 | Inpatient (IN) | payer MEDICARE, MEDICAID ==
[2021-06-27 13:07] LABS: Hemoglobin 12.7 g/dL (12.0-16.0); Mean Corpuscular HGB CONC 31.1 g/dL (32.0-36.0); Mean Corpuscular Hemoglobin 29.1 pg (27.0-31.0); Mean Corpuscular Volume 93.5 fL (78.0-98.0); Platelet Count 360 thou/uL (130-400); RBC Distribution Width 12.9 % (11.5-14.5); Red Blood Cell (RBC) Count 4.37 mill/uL (4.20-5.40); White Blood Cell (WBC) Count 16.9 thou/uL (4.8-10.8)
[2021-06-27 13:20] LABS: INR-International Normal Ratio 1.1
[2021-06-27] MEDS ORDERED: Piperacillin/Tazobactam 3.375 GM VIAL ONE (13:23)
[2021-06-27 13:30] LABS: ALT (SGPT) 45 U/L (8-55); AST (SGOT) 28 U/L (5-34); Alkaline Phosphatase 109 U/L (40-110); Anion Gap 17 mmol/L (10-20); BUN (Urea Nitrogen) 50 mg/dL (9.8-20.1); Bilirubin, Total 0.4 mg/dL (0.2-1.2); Calc. Creatinine Clearance 0 mL/min (70-130); Calcium 9.1 mg/dL (7.8-10.44); Carbon Dioxide 22 mmol/L (23-31); Chloride 111 mmol/L (98-107); Globulin 4.2 g/dL (2.4-3.5); Glucose 290 mg/dL (83-110); Protein, Total 7.2 g/dL (5.8-8.1); Sodium 146 mmol/L (136-145)
[2021-06-27 13:36] LABS: Band 6 % (5-11); Eosinophils 1 % (0-10); Lymphocytes 6 % (21-51); MDiff Complete? YES; Monocytes 4 % (0-10); Neutrophil 83 % (42-75); Platelet Morphology Comment Appears Adequate; Polychromasia SLIGHT = 2-3 cells (100X) (0-2/hpf)
[2021-06-27 14:11] LABS: Bacteria/HPF None Seen HPF (None Seen); Bilirubin Negative (Negative); Blood, Urine 1+ (Negative); Clarity Clear (Clear); Glucose, Urine (Dipstick) Greater than 1000 mg/dL (Negative); Ketone, Urine Negative (Negative); Leukocyte Negative Leu/uL (Negative); Nitrite Negative (Negative); Protein, Urine (Dipstick) Negative (Neg-Trace); Specific Gravity, Urine 1.023 (1.002-1.036); Squamous Epithelial 0-3 HPF (0-3); Urobilinogen Normal mg/dL (Less than 2); WBC/HPF 0-3 HPF (0-3)
[2021-06-27] MEDS ORDERED: Calcium Carbonate 500 MG ChewTAB PO PRN (14:14)
[2021-06-27] MEDS ORDERED: Senokot S 8.6-50 MG TAB PO PRN (14:14)
[2021-06-27] MEDS ORDERED: Piperacillin/Tazobactam 3.375 GM in Sodium Chloride 0.9% 100 ML IVPB SCH (14:30)
[2021-06-27] MEDS ORDERED: Dextrose 5% in Water 1,000 ML IV PRN (14:47)
[2021-06-27] MEDS ORDERED: Dextrose 50% Abboject 50 ML SYRINGE SLOW IVP PRN (14:47)
[2021-06-27] MEDS ORDERED: Meropenem 1 GM in Sodium Chloride 0.9% 100 ML IVPB SCH (16:00)
[2021-06-27] MEDS: Sodium Chloride 0.45% 1,000 ML IV SCH (16:44)
[2021-06-27 16:52] LABS: Lactic Acid 2.8 mmol/L (0.5-2.2)
[2021-06-27] MEDS: Famotidine 20 MG TAB PO SCH (20:17)
[2021-06-28] MEDS: Sodium Chloride 0.45% 1,000 ML IV SCH ×3 (04:26→20:32)
[2021-06-28] MEDS: Meropenem 1 GM in Sodium Chloride 0.9% 100 ML IVPB SCH ×3 (04:26→20:27)
[2021-06-28 06:29] LABS: #Basophils 0.1 thou/uL (0.0-0.2); #Eosinphils 0.2 thou/uL (0.0-0.7); #Lymphocytes 2.8 thou/uL (1.20-3.40); #Monocytes 0.6 thou/uL (0.11-0.59); #Neutrophils 5.7 thou/uL (1.40-6.50); %Basophils 0.9 % (0.0-1.0); %Eosinophils 2.2 % (0.0-10.0); %Lymphocytes 29.8 % (21.0-51.0); %Monocytes 6.6 % (0.0-10.0); %Neutrophils 60.5 % (42.0-75.0); Hemoglobin 11.4 g/dL (12.0-16.0); Mean Corpuscular HGB CONC 32.1 g/dL (32.0-36.0); Mean Corpuscular Hemoglobin 30.1 pg (27.0-31.0); Platelet Count 338 thou/uL (130-400); RBC Distribution Width 12.9 % (11.5-14.5); Red Blood Cell (RBC) Count 3.79 mill/uL (4.20-5.40); White Blood Cell (WBC) Count 9.4 thou/uL (4.8-10.8)
[2021-06-28 06:48] LABS: Anion Gap 10 mmol/L (10-20); BUN (Urea Nitrogen) 19 mg/dL (9.8-20.1); Calc. Creatinine Clearance 89 mL/min (70-130); Calcium 8.6 mg/dL (7.8-10.44); Carbon Dioxide 26 mmol/L (23-31); Chloride 111 mmol/L (98-107); Glucose 102 mg/dL (83-110); Potassium 3.4 mmol/L (3.5-5.1); Sodium 144 mmol/L (136-145)
[2021-06-28] MEDS: Famotidine 20 MG TAB PO SCH ×2 (08:46→20:29)
[2021-06-28 10:12] VITALS: BMI 20.2
[2021-06-28] MEDS: Acetaminophen 325 MG TAB PO PRN (20:29)
[2021-06-29] MEDS: Meropenem 1 GM in Sodium Chloride 0.9% 100 ML IVPB SCH ×3 (02:59→21:04)
[2021-06-29 06:20] LABS: #Eosinphils 0.1 thou/uL (0.0-0.7); #Lymphocytes 2.9 thou/uL (1.20-3.40); #Monocytes 0.6 thou/uL (0.11-0.59); #Neutrophils 4.2 thou/uL (1.40-6.50); %Basophils 0.4 % (0.0-1.0); %Eosinophils 0.9 % (0.0-10.0); %Monocytes 7.1 % (0.0-10.0); %Neutrophils 53.7 % (42.0-75.0); Hemoglobin 12.3 g/dL (12.0-16.0); Mean Corpuscular HGB CONC 32.9 g/dL (32.0-36.0); Mean Corpuscular Hemoglobin 30.5 pg (27.0-31.0); Mean Platelet Volume 9.1 fL (7.4-10.4); Platelet Count 334 thou/uL (130-400); RBC Distribution Width 12.8 % (11.5-14.5); Red Blood Cell (RBC) Count 4.03 mill/uL (4.20-5.40); White Blood Cell (WBC) Count 7.8 thou/uL (4.8-10.8)
[2021-06-29 06:55] LABS: Anion Gap 13 mmol/L (10-20); BUN (Urea Nitrogen) 13 mg/dL (9.8-20.1); Calc. Creatinine Clearance 84 mL/min (70-130); Calcium 8.4 mg/dL (7.8-10.44); Carbon Dioxide 25 mmol/L (23-31); Chloride 104 mmol/L (98-107); Glucose 109 mg/dL (83-110); Potassium 3.5 mmol/L (3.5-5.1); Sodium 138 mmol/L (136-145)
[2021-06-29] MEDS: Famotidine 20 MG TAB PO SCH ×2 (09:25→21:04)
[2021-06-29] MEDS: Sodium Chloride 0.45% 1,000 ML IV SCH (21:03)
[2021-06-29] MEDS: Acetaminophen 325 MG TAB PO PRN (21:05)
[2021-06-30] MEDS: Meropenem 1 GM in Sodium Chloride 0.9% 100 ML IVPB SCH ×3 (03:20→20:25)
[2021-06-30 06:48] LABS: #Eosinphils 0.1 thou/uL (0.0-0.7); #Lymphocytes 2.8 thou/uL (1.20-3.40); #Monocytes 0.8 thou/uL (0.11-0.59); #Neutrophils 4.6 thou/uL (1.40-6.50); %Lymphocytes 33.9 % (21.0-51.0); %Monocytes 9.5 % (0.0-10.0); %Neutrophils 55.6 % (42.0-75.0); Hemoglobin 13.5 g/dL (12.0-16.0); Mean Corpuscular HGB CONC 32.5 g/dL (32.0-36.0); Mean Corpuscular Hemoglobin 30.1 pg (27.0-31.0); Mean Corpuscular Volume 92.5 fL (78.0-98.0); Platelet Count 341 thou/uL (130-400); RBC Distribution Width 12.9 % (11.5-14.5); Red Blood Cell (RBC) Count 4.49 mill/uL (4.20-5.40); White Blood Cell (WBC) Count 8.3 thou/uL (4.8-10.8)
[2021-06-30 07:15] LABS: Anion Gap 13 mmol/L (10-20); BUN (Urea Nitrogen) 12 mg/dL (9.8-20.1); Calc. Creatinine Clearance 85 mL/min (70-130); Calcium 8.7 mg/dL (7.8-10.44); Carbon Dioxide 26 mmol/L (23-31); Chloride 99 mmol/L (98-107); Glucose 139 mg/dL (83-110); Potassium 3.5 mmol/L (3.5-5.1); Sodium 134 mmol/L (136-145)
[2021-06-30] MEDS: Famotidine 20 MG TAB PO SCH ×2 (09:57→20:26)
[2021-06-30] MEDS: Sodium Chloride 0.45% 1,000 ML IV SCH ×2 (13:53→21:43)
[2021-06-30] MEDS: Heparin 5,000 UNITS/ML VIAL SC SCH (20:26)
[2021-06-30] MEDS: HumaLOG 300 UNITS/3 ML VIAL SC PRN (20:52)
[2021-07-01] MEDS: Meropenem 1 GM in Sodium Chloride 0.9% 100 ML IVPB SCH ×3 (04:27→19:31)
[2021-07-01] MEDS: Famotidine 20 MG TAB PO SCH ×2 (08:37→20:03)
[2021-07-01] MEDS: Heparin 5,000 UNITS/ML VIAL SC SCH ×2 (08:37→20:03)
[2021-07-01] MEDS: Sodium Chloride 0.45% 1,000 ML IV SCH (12:50)
[2021-07-02] MEDS: Sodium Chloride 0.45% 1,000 ML IV SCH ×3 (04:02→20:34)
[2021-07-02] MEDS: Meropenem 1 GM in Sodium Chloride 0.9% 100 ML IVPB SCH ×3 (04:11→20:34)
[2021-07-02] MEDS: HumaLOG 300 UNITS/3 ML VIAL SC PRN (05:10)
[2021-07-02] MEDS: Famotidine 20 MG TAB PO SCH ×2 (08:53→20:34)
[2021-07-02] MEDS: Heparin 5,000 UNITS/ML VIAL SC SCH ×2 (08:54→20:34)
[2021-07-02] MEDS: Baclofen 10 MG TAB PER TUBE SCH (20:34)
[2021-07-02] MEDS ORDERED: GLUTAMINE PER TUBE SCH (21:00)
[2021-07-02] MEDS ORDERED: [UNRECOGNIZED DRUG - OTHER] PER TUBE SCH (21:00)
[2021-07-02] MEDS ORDERED: ARGININE PER TUBE SCH (21:00)
[2021-07-03] MEDS: HumaLOG 300 UNITS/3 ML VIAL SC PRN ×3 (04:20→18:31)
[2021-07-03] MEDS: Meropenem 1 GM in Sodium Chloride 0.9% 100 ML IVPB SCH ×3 (04:20→21:25)
[2021-07-03] MEDS: Chlorthalidone 25 MG TAB PER TUBE SCH (08:24)
[2021-07-03] MEDS: metFORMIN 500 MG TAB PER TUBE SCH ×2 (08:24→17:42)
[2021-07-03] MEDS: Multivit, Therapeutic 1 TAB PER TUBE SCH (08:24)
[2021-07-03] MEDS: Heparin 5,000 UNITS/ML VIAL SC SCH ×2 (08:24→21:24)
[2021-07-03] MEDS: Famotidine 20 MG TAB PO SCH ×2 (08:24→21:24)
[2021-07-03] MEDS: Ascorbic Acid 500 mg Chewable Tablet PER TUBE SCH (08:24)
[2021-07-03] MEDS: Zinc Sulfate 220 MG CAP PER TUBE SCH (08:25)
[2021-07-03] MEDS: Baclofen 10 MG TAB PER TUBE SCH ×2 (08:25→21:24)
[2021-07-03 15:30] LABS: SARS-CoV-2 PCR by NAA Not Detected (NotDetected)
[2021-07-03] MEDS: Sodium Chloride 0.45% 1,000 ML IV SCH (17:42)
[2021-07-04] MEDS: Meropenem 1 GM in Sodium Chloride 0.9% 100 ML IVPB SCH ×2 (04:09→12:08)
[2021-07-04] MEDS: HumaLOG 300 UNITS/3 ML VIAL SC PRN (04:17)
[2021-07-04] MEDS: Sodium Chloride 0.45% 1,000 ML IV SCH (07:09)
[2021-07-04 07:58] VITALS: TEMP 98
[2021-07-04] MEDS: Chlorthalidone 25 MG TAB PER TUBE SCH (08:17)
[2021-07-04] MEDS: Zinc Sulfate 220 MG CAP PER TUBE SCH (08:18)
[2021-07-04] MEDS: metFORMIN 500 MG TAB PER TUBE SCH ×2 (08:18→16:53)
[2021-07-04] MEDS: Famotidine 20 MG TAB PO SCH (08:18)
[2021-07-04] MEDS: Multivit, Therapeutic 1 TAB PER TUBE SCH (08:18)
[2021-07-04] MEDS: Heparin 5,000 UNITS/ML VIAL SC SCH (08:18)
[2021-07-04] MEDS: Baclofen 10 MG TAB PER TUBE SCH (08:18)
[2021-07-04] MEDS: Ascorbic Acid 500 mg Chewable Tablet PER TUBE SCH (08:18)
[2021-07-04 18:40] VITALS: BP 104/72
== END 2021-07-04 18:41 | DRG 698 ==
LOC: ERS 11:55 → T4-B 14:14
PROVIDERS: ADMIT Family Medicine; ATTEND Family Medicine
DX: T83.511A Infection and inflammatory reaction due to indwelling urethral catheter, initial encounter (principal); L89.223 Pressure ulcer of left hip, stage 3; L89.213 Pressure ulcer of right hip, stage 3; E43 Unspecified severe protein-calorie malnutrition; A41.59 Other Gram-negative sepsis; G82.20 Paraplegia, unspecified; E87.0 Hyperosmolality and hypernatremia; N30.00 Acute cystitis without hematuria; F32.9 Major depressive disorder, single episode, unspecified; E11.9 Type 2 diabetes mellitus without complications; I10 Essential (primary) hypertension; K21.9 Gastro-esophageal reflux disease without esophagitis; E87.5 Hyperkalemia; G30.9 Alzheimer's disease, unspecified; F02.80 Dementia in other diseases classified elsewhere, unspecified severity, without behavioral disturbance, psychotic disturbance, mood disturbance, and anxiety; Z20.822 Contact with and (suspected) exposure to COVID-19; R13.10 Dysphagia, unspecified; Y83.8 Other surgical procedures as the cause of abnormal reaction of the patient, or of later complication, without mention of misadventure at the time of the procedure; Z86.73 Personal history of transient ischemic attack (TIA), and cerebral infarction without residual deficits; Z88.8 Allergy status to other drugs, medicaments and biological substances; Z74.01 Bed confinement status; Z79.84 Long term (current) use of oral hypoglycemic drugs; Z79.899 Other long term (current) drug therapy; Z93.1 Gastrostomy status; Z68.20 Body mass index [BMI] 20.0-20.9, adult
CPT/HCPCS: 36415; 36416; 51702; 71045; 80048; 80053; 81003; 81015; 83605; 85025; 85610; 85730; 87040; 87086; 93005; 94760; 96374; J1644; J1815; J2185; J2543; J3490; U0003; U0005

== ENCOUNTER 2021-07-21 14:11 | Inpatient (IN) | payer MEDICARE, MEDICAID ==
[2021-07-21 14:39] LABS: #Lymphocytes 2.4 thou/uL (1.20-3.40); #Neutrophils 10.5 thou/uL (1.40-6.50); %Basophils 0.3 % (0.0-1.0); %Eosinophils 0.1 % (0.0-10.0); %Lymphocytes 17.3 % (21.0-51.0); %Monocytes 6.9 % (0.0-10.0); %Neutrophils 75.4 % (42.0-75.0); Hemoglobin 13.3 g/dL (12.0-16.0); Mean Corpuscular HGB CONC 31.7 g/dL (32.0-36.0); Mean Corpuscular Hemoglobin 29.3 pg (27.0-31.0); Mean Corpuscular Volume 92.5 fL (78.0-98.0); Mean Platelet Volume 9.2 fL (7.4-10.4); Platelet Count 265 thou/uL (130-400); RBC Distribution Width 13.6 % (11.5-14.5); Red Blood Cell (RBC) Count 4.54 mill/uL (4.20-5.40); White Blood Cell (WBC) Count 13.9 thou/uL (4.8-10.8)
[2021-07-21 14:46] LABS: INR-International Normal Ratio 1.1; PTT 30.7 sec (22.9-36.1); Prothrombin Time 14.4 sec (12.0-14.7)
[2021-07-21 14:50] LABS: ALT (SGPT) 53 U/L (8-55); AST (SGOT) 37 U/L (5-34); Alkaline Phosphatase 88 U/L (40-110); Anion Gap 21 mmol/L (10-20); Bilirubin, Total 0.3 mg/dL (0.2-1.2); Calc. Creatinine Clearance 0 mL/min (70-130); Calcium 8.8 mg/dL (7.8-10.44); Carbon Dioxide 25 mmol/L (23-31); Chloride 117 mmol/L (98-107); Globulin 3.8 g/dL (2.4-3.5); Glucose 410 mg/dL (83-110); Potassium 3.7 mmol/L (3.5-5.1); Protein, Total 6.8 g/dL (5.8-8.1); Sodium 159 mmol/L (136-145)
[2021-07-21] MEDS ORDERED: Vancomycin 1 GM/200 ML BAG ONE (14:56)
[2021-07-21] MEDS ORDERED: Cefepime 2 GM VIAL ONE (14:56)
[2021-07-21 15:03] LABS: BUN (Urea Nitrogen) 135 mg/dL (9.8-20.1)
[2021-07-21 15:10] LABS: Bacteria/HPF 4+ HPF (None Seen); Bilirubin Negative (Negative); Blood, Urine 1+ (Negative); Clarity Turbid (Clear); Glucose, Urine (Dipstick) Greater than 1000 mg/dL (Negative); Ketone, Urine Negative (Negative); Leukocyte 500 Leu/uL (Negative); Nitrite Negative (Negative); Protein, Urine (Dipstick) 10 mg/dL (Neg-Trace); Specific Gravity, Urine 1.019 (1.002-1.036); Squamous Epithelial None Seen HPF (0-3); Urobilinogen Normal mg/dL (Less than 2); WBC/HPF 21-50 HPF (0-3)
[2021-07-21 15:17] LABS: CK (CPK) 72 U/L (29-168); Magnesium 2.6 mg/dL (1.6-2.6)
[2021-07-21 15:20] LABS: Yeast-Budding 1+ HPF (None Seen)
[2021-07-21] MEDS ORDERED: Communication Order-Pharmacy FS ONE (16:49)
[2021-07-21] MEDS ORDERED: Lactated Ringer's 1,000 ML IV SCH (17:00)
[2021-07-21] MEDS ORDERED: Dextrose 50% Abboject 50 ML SYRINGE SLOW IVP PRN (17:02)
[2021-07-21] MEDS ORDERED: Ondansetron PF 4 MG/2 ML Vial IVP PRN (17:02)
[2021-07-21] MEDS ORDERED: Acetaminophen 325 MG TAB PO PRN (17:02)
[2021-07-21] MEDS ORDERED: Acetaminophen 650 MG Suppository PR PRN (17:02)
[2021-07-21] MEDS ORDERED: Dextrose 5% in Water 1,000 ML IV PRN (17:02)
[2021-07-21 17:18] LABS: Actual Bicarbonate (HCO3v) 25 mEq/L (22-28); Base Excess 3.1 mEq/L (-2.0 to +3.0); Calcium, Ionized (venous) 1.04 mmol/L (1.16-1.32); Chloride (VBG) 119 mmol/L (98-106); Potassium (VBG) 3.56 mmol/L (3.70-5.30); Sodium 157.5 mmol/L (133-146); pH (venous) 7.52 (7.32-7.43)
[2021-07-21 17:27] LABS: #Lymphocytes 2.9 thou/uL (1.20-3.40); #Monocytes 0.7 thou/uL (0.11-0.59); #Neutrophils 12.9 thou/uL (1.40-6.50); %Basophils 0.1 % (0.0-1.0); %Eosinophils 0.1 % (0.0-10.0); %Lymphocytes 17.3 % (21.0-51.0); %Monocytes 4.4 % (0.0-10.0); %Neutrophils 78.1 % (42.0-75.0); Mean Corpuscular HGB CONC 30.9 g/dL (32.0-36.0); Mean Corpuscular Hemoglobin 29.4 pg (27.0-31.0); Mean Corpuscular Volume 95.2 fL (78.0-98.0); Mean Platelet Volume 9.3 fL (7.4-10.4); Platelet Count 225 thou/uL (130-400); RBC Distribution Width 13.4 % (11.5-14.5); Red Blood Cell (RBC) Count 4.43 mill/uL (4.20-5.40); White Blood Cell (WBC) Count 16.5 thou/uL (4.8-10.8)
[2021-07-21 17:31] LABS: Lactic Acid 2.1 mmol/L (0.5-2.2)
[2021-07-21 17:42] LABS: ALT (SGPT) 53 U/L (8-55); AST (SGOT) 35 U/L (5-34); Albumin 2.9 g/dL (3.4-4.8); Alkaline Phosphatase 90 U/L (40-110); Anion Gap 16 mmol/L (10-20); Bilirubin, Total 0.2 mg/dL (0.2-1.2); Calc. Creatinine Clearance 0 mL/min (70-130); Calcium 8.8 mg/dL (7.8-10.44); Carbon Dioxide 27 mmol/L (23-31); Chloride 119 mmol/L (98-107); Globulin 3.8 g/dL (2.4-3.5); Glucose 402 mg/dL (83-110); Potassium 3.7 mmol/L (3.5-5.1); Protein, Total 6.7 g/dL (5.8-8.1); Sodium 158 mmol/L (136-145)
[2021-07-21 17:45] LABS: Troponin I 0.048 ng/mL (< 0.028)
[2021-07-21 17:53] LABS: BUN (Urea Nitrogen) 123 mg/dL (9.8-20.1)
[2021-07-21] MEDS ORDERED: Meropenem 1 GM in Sodium Chloride 0.9% 100 ML IVPB SCH (18:30)
[2021-07-21] MEDS: Lactated Ringer's 1,000 ML IV SCH (20:13)
[2021-07-21] MEDS: Famotidine 20 MG TAB PO SCH (20:35)
[2021-07-21] MEDS ORDERED: Heparin 5,000 UNITS/ML VIAL SC SCH (21:00)
[2021-07-21 21:35] LABS: Glucose 305 mg/dL (83-110)
[2021-07-21 21:42] LABS: Magnesium 2.7 mg/dL (1.6-2.6); Phosphorus 4.7 mg/dL (2.3-4.7)
[2021-07-21 22:20] LABS: Albumin 3.2 g/dL (3.4-4.8)
[2021-07-21 22:21] LABS: Chloride 120 mmol/L (98-107); Potassium 4.2 mmol/L (3.5-5.1); Sodium 159 mmol/L (136-145)
[2021-07-21 22:22] LABS: Calcium 9.4 mg/dL (7.8-10.44)
[2021-07-21 22:23] LABS: Globulin 4.5 g/dL (2.4-3.5); Protein, Total 7.7 g/dL (5.8-8.1)
[2021-07-21 22:24] LABS: Anion Gap 21 mmol/L (10-20); Carbon Dioxide 22 mmol/L (23-31)
[2021-07-21 22:25] LABS: Alkaline Phosphatase 106 U/L (40-110)
[2021-07-21 22:26] LABS: Calc. Creatinine Clearance 34 mL/min (70-130)
[2021-07-21 22:27] LABS: BUN (Urea Nitrogen) 124 mg/dL (9.8-20.1)
[2021-07-21 22:28] LABS: ALT (SGPT) 60 U/L (8-55); AST (SGOT) 43 U/L (5-34); Bilirubin, Total 0.4 mg/dL (0.2-1.2)
[2021-07-21 22:40] LABS: Legionella Urinary Ag Negative (Negative); Strep pneumo Urine Ag NEGATIVE (NEGATIVE)
[2021-07-22] MEDS ORDERED: Meropenem 1 GM in Sodium Chloride 0.9% 100 ML IVPB SCH ×2 (03:00→04:00)
[2021-07-22 04:36] LABS: #Eosinphils 0.1 thou/uL (0.0-0.7); #Lymphocytes 3.2 thou/uL (1.20-3.40); #Monocytes 0.7 thou/uL (0.11-0.59); #Neutrophils 10.9 thou/uL (1.40-6.50); %Basophils 0.3 % (0.0-1.0); %Eosinophils 0.6 % (0.0-10.0); %Lymphocytes 21.5 % (21.0-51.0); %Monocytes 4.7 % (0.0-10.0); Hemoglobin 13.1 g/dL (12.0-16.0); Mean Corpuscular HGB CONC 30.8 g/dL (32.0-36.0); Mean Corpuscular Hemoglobin 29.2 pg (27.0-31.0); Mean Corpuscular Volume 94.8 fL (78.0-98.0); Mean Platelet Volume 9.7 fL (7.4-10.4); Platelet Count 209 thou/uL (130-400); RBC Distribution Width 13.4 % (11.5-14.5); Red Blood Cell (RBC) Count 4.48 mill/uL (4.20-5.40)
[2021-07-22] MEDS: Lactated Ringer's 1,000 ML IV SCH (04:37)
[2021-07-22 04:54] LABS: Magnesium 2.5 mg/dL (1.6-2.6); Phosphorus 3.4 mg/dL (2.3-4.7)
[2021-07-22 05:14] LABS: ALT (SGPT) 52 U/L (8-55); AST (SGOT) 33 U/L (5-34); Albumin 3.1 g/dL (3.4-4.8); Alkaline Phosphatase 96 U/L (40-110); Anion Gap 17 mmol/L (10-20); BUN (Urea Nitrogen) 88 mg/dL (9.8-20.1); Bilirubin, Total 0.5 mg/dL (0.2-1.2); Calc. Creatinine Clearance 53 mL/min (70-130); Calcium 9.3 mg/dL (7.8-10.44); Carbon Dioxide 27 mmol/L (23-31); Chloride 118 mmol/L (98-107); Glucose 212 mg/dL (83-110); Potassium 3.9 mmol/L (3.5-5.1); Protein, Total 7.1 g/dL (5.8-8.1); Sodium 158 mmol/L (136-145)
[2021-07-22] MEDS: Polyethylene Glycol 3350 17 GM Packet PER TUBE SCH (08:46)
[2021-07-22] MEDS: 1/2 NS w/KCL 20 mEq 1,000 ML IV SCH ×3 (08:46→22:25)
[2021-07-22] MEDS ORDERED: ARGININE PER TUBE SCH (09:00)
[2021-07-22] MEDS ORDERED: [UNRECOGNIZED DRUG - OTHER] PER TUBE SCH (09:00)
[2021-07-22] MEDS ORDERED: GLUTAMINE PER TUBE SCH (09:00)
[2021-07-22] MEDS: Zinc Sulfate 220 MG CAP PER TUBE SCH (10:39)
[2021-07-22] MEDS: Empagliflozin 25 MG TAB PO SCH (10:39)
[2021-07-22] MEDS: Multivit, Therapeutic 1 TAB PER TUBE SCH (10:39)
[2021-07-22] MEDS: Ascorbic Acid 500 mg Chewable Tablet PER TUBE SCH (11:32)
[2021-07-22] MEDS: Meropenem 1 GM in Sodium Chloride 0.9% 100 ML IVPB SCH ×2 (11:34→20:42)
[2021-07-22 11:41] LABS: ALT (SGPT) 56 U/L (8-55); AST (SGOT) 48 U/L (5-34); Alkaline Phosphatase 100 U/L (40-110); Anion Gap 18 mmol/L (10-20); BUN (Urea Nitrogen) 67 mg/dL (9.8-20.1); Bilirubin, Total 0.6 mg/dL (0.2-1.2); Calc. Creatinine Clearance 60 mL/min (70-130); Calcium 9.3 mg/dL (7.8-10.44); Carbon Dioxide 24 mmol/L (23-31); Chloride 115 mmol/L (98-107); Globulin 4.2 g/dL (2.4-3.5); Glucose 161 mg/dL (83-110); Potassium 4.1 mmol/L (3.5-5.1); Protein, Total 7.2 g/dL (5.8-8.1); Sodium 153 mmol/L (136-145)
[2021-07-22 12:40] VITALS: BMI 21.4
[2021-07-22 14:13] LABS: Chlam.trachomatis by PCR,Urine Not Detected (NotDetected)
[2021-07-22] MEDS: Vancomycin 1 GM in Premix Bag 1 BAG IVPB SCH (17:46)
[2021-07-22 17:57] LABS: ALT (SGPT) 85 U/L (8-55); AST (SGOT) 88 U/L (5-34); Alkaline Phosphatase 101 U/L (40-110); Anion Gap 12 mmol/L (10-20); BUN (Urea Nitrogen) 53 mg/dL (9.8-20.1); Bilirubin, Total 0.6 mg/dL (0.2-1.2); Calc. Creatinine Clearance 67 mL/min (70-130); Calcium 8.8 mg/dL (7.8-10.44); Carbon Dioxide 31 mmol/L (23-31); Chloride 114 mmol/L (98-107); Globulin 3.8 g/dL (2.4-3.5); Glucose 160 mg/dL (83-110); Potassium 3.6 mmol/L (3.5-5.1); Protein, Total 6.8 g/dL (5.8-8.1); Sodium 153 mmol/L (136-145)
[2021-07-22] MEDS: Famotidine 20 MG TAB PO SCH (20:44)
[2021-07-22] MEDS: Baclofen 10 MG TAB PER TUBE SCH (20:44)
[2021-07-23] MEDS: Meropenem 1 GM in Sodium Chloride 0.9% 100 ML IVPB SCH ×3 (04:33→22:11)
[2021-07-23] MEDS: HumaLOG 300 UNITS/3 ML VIAL SC PRN (04:42)
[2021-07-23] MEDS: 1/2 NS w/KCL 20 mEq 1,000 ML IV SCH (06:15)
[2021-07-23] MEDS: Baclofen 10 MG TAB PER TUBE SCH ×2 (09:01→20:15)
[2021-07-23] MEDS: Multivit, Therapeutic 1 TAB PER TUBE SCH (09:01)
[2021-07-23] MEDS: Zinc Sulfate 220 MG CAP PER TUBE SCH (09:01)
[2021-07-23] MEDS: Ascorbic Acid 500 mg Chewable Tablet PER TUBE SCH (09:01)
[2021-07-23] MEDS: Polyethylene Glycol 3350 17 GM Packet PER TUBE SCH (09:01)
[2021-07-23] MEDS: Empagliflozin 25 MG TAB PO SCH (09:01)
[2021-07-23 16:46] LABS: #Eosinphils 0.2 thou/uL (0.0-0.7); #Lymphocytes 3.1 thou/uL (1.20-3.40); #Monocytes 0.7 thou/uL (0.11-0.59); %Basophils 0.4 % (0.0-1.0); %Eosinophils 1.3 % (0.0-10.0); %Monocytes 5.2 % (0.0-10.0); %Neutrophils 69.2 % (42.0-75.0); Hemoglobin 13.5 g/dL (12.0-16.0); Mean Corpuscular HGB CONC 31.4 g/dL (32.0-36.0); Mean Corpuscular Hemoglobin 29.7 pg (27.0-31.0); Mean Corpuscular Volume 94.7 fL (78.0-98.0); Mean Platelet Volume 9.4 fL (7.4-10.4); Platelet Count 191 thou/uL (130-400); RBC Distribution Width 13.1 % (11.5-14.5); Red Blood Cell (RBC) Count 4.55 mill/uL (4.20-5.40)
[2021-07-23 17:07] LABS: Anion Gap 16 mmol/L (10-20); Calc. Creatinine Clearance 70 mL/min (70-130); Calcium 8.9 mg/dL (7.8-10.44); Carbon Dioxide 20 mmol/L (23-31); Chloride 110 mmol/L (98-107); Glucose 212 mg/dL (83-110); Potassium 4.6 mmol/L (3.5-5.1); Sodium 141 mmol/L (136-145)
[2021-07-23] MEDS: Potassium Chloride 20 MEQ in Sodium Chloride 0.45% 1,000 ML IV SCH ×2 (17:15→22:12)
[2021-07-23] MEDS: Vancomycin 1 GM in Premix Bag 1 BAG IVPB SCH (17:16)
[2021-07-23] MEDS: metFORMIN 500 MG TAB PER TUBE SCH (17:16)
[2021-07-23 17:21] LABS: BUN (Urea Nitrogen) 29 mg/dL (9.8-20.1)
[2021-07-23 17:40] LABS: Vancomycin, Trough 10.6 ug/mL
[2021-07-23] MEDS ORDERED: Vancomycin HCl 500 MG in Sodium Chloride 0.9% 100 ML IVPB SCH (18:45)
[2021-07-23] MEDS: Famotidine 20 MG TAB PO SCH (20:15)
[2021-07-24] MEDS: Meropenem 1 GM in Sodium Chloride 0.9% 100 ML IVPB SCH ×3 (05:15→20:01)
[2021-07-24] MEDS: Potassium Chloride 20 MEQ in Sodium Chloride 0.45% 1,000 ML IV SCH (05:15)
[2021-07-24 07:06] LABS: Anion Gap 12 mmol/L (10-20); BUN (Urea Nitrogen) 24 mg/dL (9.8-20.1); Calc. Creatinine Clearance 74 mL/min (70-130); Carbon Dioxide 23 mmol/L (23-31); Chloride 108 mmol/L (98-107); Glucose 177 mg/dL (83-110); Potassium 4.2 mmol/L (3.5-5.1); Sodium 139 mmol/L (136-145)
[2021-07-24] MEDS: Baclofen 10 MG TAB PER TUBE SCH ×2 (07:56→20:01)
[2021-07-24] MEDS: Zinc Sulfate 220 MG CAP PER TUBE SCH (07:56)
[2021-07-24] MEDS: Ascorbic Acid 500 mg Chewable Tablet PER TUBE SCH (07:56)
[2021-07-24] MEDS: Multivit, Therapeutic 1 TAB PER TUBE SCH (07:56)
[2021-07-24] MEDS: Polyethylene Glycol 3350 17 GM Packet PER TUBE SCH (07:56)
[2021-07-24] MEDS: metFORMIN 500 MG TAB PER TUBE SCH ×2 (07:56→15:37)
[2021-07-24] MEDS: 1/2 NS w/KCL 20 mEq 1,000 ML IV SCH ×2 (09:47→15:34)
[2021-07-24] MEDS: Famotidine 20 MG TAB PO SCH ×2 (09:47→20:01)
[2021-07-24] MEDS: HumaLOG 300 UNITS/3 ML VIAL SC PRN ×2 (11:04→16:43)
[2021-07-24] MEDS: Vancomycin 1.5 GRAM/300 ML BAG 1.5 GM in Premix Bag 1 BAG IVPB SCH (16:44)
[2021-07-25] MEDS: Meropenem 1 GM in Sodium Chloride 0.9% 100 ML IVPB SCH ×3 (05:01→21:07)
[2021-07-25] MEDS: 1/2 NS w/KCL 20 mEq 1,000 ML IV SCH ×3 (05:02→16:57)
[2021-07-25] MEDS: HumaLOG 300 UNITS/3 ML VIAL SC PRN (05:06)
[2021-07-25] MEDS: Zinc Sulfate 220 MG CAP PER TUBE SCH (08:19)
[2021-07-25] MEDS: Multivit, Therapeutic 1 TAB PER TUBE SCH (08:19)
[2021-07-25] MEDS: metFORMIN 500 MG TAB PER TUBE SCH ×2 (08:19→16:34)
[2021-07-25] MEDS: Polyethylene Glycol 3350 17 GM Packet PER TUBE SCH (08:19)
[2021-07-25] MEDS: Baclofen 10 MG TAB PER TUBE SCH ×2 (08:19→21:07)
[2021-07-25] MEDS: Ascorbic Acid 500 mg Chewable Tablet PER TUBE SCH (08:19)
[2021-07-25] MEDS: Famotidine 20 MG TAB PO SCH ×2 (08:19→21:07)
[2021-07-25 17:35] LABS: Vancomycin, Trough 11.8 ug/mL
[2021-07-25] MEDS: Vancomycin 1.5 GRAM/300 ML BAG 1.5 GM in Premix Bag 1 BAG IVPB SCH (18:02)
[2021-07-25] MEDS ORDERED: Vancomycin HCl 750 MG in Sodium Chloride 0.9% 250 ML 250 ML IVPB SCH (18:15)
[2021-07-26] MEDS: Meropenem 1 GM in Sodium Chloride 0.9% 100 ML IVPB SCH (03:20)
[2021-07-26] MEDS: 1/2 NS w/KCL 20 mEq 1,000 ML IV SCH ×3 (03:21→17:07)
[2021-07-26] MEDS ORDERED: Vancomycin HCl 750 MG in Sodium Chloride 0.9% 250 ML 250 ML IVPB SCH (06:00)
[2021-07-26] MEDS: HumaLOG 300 UNITS/3 ML VIAL SC PRN (06:59)
[2021-07-26 07:43] LABS: Calc. Creatinine Clearance 77 mL/min (70-130)
[2021-07-26] MEDS: Zinc Sulfate 220 MG CAP PER TUBE SCH (08:10)
[2021-07-26] MEDS: Baclofen 10 MG TAB PER TUBE SCH (08:10)
[2021-07-26] MEDS: Ascorbic Acid 500 mg Chewable Tablet PER TUBE SCH (08:10)
[2021-07-26] MEDS: metFORMIN 500 MG TAB PER TUBE SCH ×2 (08:10→17:07)
[2021-07-26] MEDS: Polyethylene Glycol 3350 17 GM Packet PER TUBE SCH (08:11)
[2021-07-26] MEDS: Famotidine 20 MG TAB PO SCH (08:11)
[2021-07-26] MEDS: Multivit, Therapeutic 1 TAB PER TUBE SCH (08:11)
[2021-07-26 11:40] VITALS: TEMP 97.7
[2021-07-26 16:34] VITALS: BP 96/61
== END 2021-07-26 17:07 | disposition home or self-care (01) | DRG 871 ==
LOC: ERS 14:11 → CCU 15:57 → T4-B 07-22 23:23
PROVIDERS: ADMIT Internal Medicine; ATTEND Internal Medicine
DX: A41.9 Sepsis, unspecified organism (principal); R65.21 Severe sepsis with septic shock; L89.213 Pressure ulcer of right hip, stage 3; E11.00 Type 2 diabetes mellitus with hyperosmolarity without nonketotic hyperglycemic-hyperosmolar coma (NKHHC); E43 Unspecified severe protein-calorie malnutrition; J18.9 Pneumonia, unspecified organism; N17.9 Acute kidney failure, unspecified; E87.0 Hyperosmolality and hypernatremia; R64 Cachexia; N39.0 Urinary tract infection, site not specified; G93.49 Other encephalopathy; Z20.822 Contact with and (suspected) exposure to COVID-19; G30.9 Alzheimer's disease, unspecified; K21.9 Gastro-esophageal reflux disease without esophagitis; D50.9 Iron deficiency anemia, unspecified; F02.80 Dementia in other diseases classified elsewhere, unspecified severity, without behavioral disturbance, psychotic disturbance, mood disturbance, and anxiety; E11.65 Type 2 diabetes mellitus with hyperglycemia; I11.0 Hypertensive heart disease with heart failure; M19.90 Unspecified osteoarthritis, unspecified site; Y95 Nosocomial condition; I50.9 Heart failure, unspecified; Z88.6 Allergy status to analgesic agent; Z79.84 Long term (current) use of oral hypoglycemic drugs; I69.920 Aphasia following unspecified cerebrovascular disease; Z68.21 Body mass index [BMI] 21.0-21.9, adult; Z74.01 Bed confinement status; Z91.018 Allergy to other foods; Z93.1 Gastrostomy status
CPT/HCPCS: 36415; 36416; 70450; 71045; 74176; 80048; 80053; 80202; 81003; 81015; 82010; 82550; 82553; 82565; 82805; 83605; 83735; 83930; 84100; 84145; 84484; 85025; 85610; 85730; 87040; 87070; 87077; 87086; 87186; 87205; 87449; 87491; 87591; 87899; 93005; 94760; 96374; 96375; J0692; J1815; J2185; J3370; J3480; J3490; J7050; J7120; U0003; U0005

== ENCOUNTER 2021-08-07 10:30 | Inpatient (IN) | payer MEDICARE, MEDICAID ==
[2021-08-07 11:29] LABS: #Lymphocytes 1.2 thou/uL (1.20-3.40); #Monocytes 0.4 thou/uL (0.11-0.59); %Basophils 0.1 % (0.0-1.0); %Eosinophils 0.1 % (0.0-10.0); %Lymphocytes 12.6 % (21.0-51.0); %Monocytes 3.7 % (0.0-10.0); %Neutrophils 83.5 % (42.0-75.0); Hemoglobin 13.7 g/dL (12.0-16.0); Mean Corpuscular HGB CONC 32.5 g/dL (32.0-36.0); Mean Corpuscular Hemoglobin 29.5 pg (27.0-31.0); Mean Corpuscular Volume 90.9 fL (78.0-98.0); Mean Platelet Volume 8.7 fL (7.4-10.4); Platelet Count 468 thou/uL (130-400); RBC Distribution Width 13.3 % (11.5-14.5); Red Blood Cell (RBC) Count 4.64 mill/uL (4.20-5.40); White Blood Cell (WBC) Count 9.6 thou/uL (4.8-10.8)
[2021-08-07 11:45] LABS: ALT (SGPT) 19 U/L (8-55); AST (SGOT) 24 U/L (5-34); Albumin 3.4 g/dL (3.4-4.8); Alkaline Phosphatase 154 U/L (40-110); Anion Gap 20 mmol/L (10-20); BUN (Urea Nitrogen) 58 mg/dL (9.8-20.1); Bilirubin, Total 0.3 mg/dL (0.2-1.2); Calc. Creatinine Clearance 0 mL/min (70-130); Calcium 9.6 mg/dL (7.8-10.44); Carbon Dioxide 25 mmol/L (23-31); Chloride 97 mmol/L (98-107); Globulin 4.8 g/dL (2.4-3.5); Glucose 283 mg/dL (83-110); Potassium 4.2 mmol/L (3.5-5.1); Protein, Total 8.2 g/dL (5.8-8.1); Sodium 138 mmol/L (136-145)
[2021-08-07] MEDS ORDERED: Cefepime 2 GM VIAL ONE (12:24)
[2021-08-07] MEDS ORDERED: cloNIDine 0.1 MG TAB ONE (12:24)
[2021-08-07 12:38] LABS: Bilirubin Negative (Negative); Blood, Urine 1+ (Negative); Clarity Turbid (Clear); Glucose, Urine (Dipstick) Greater than 1000 mg/dL (Negative); Ketone, Urine Negative (Negative); Leukocyte 500 Leu/uL (Negative); Nitrite Negative (Negative); Protein, Urine (Dipstick) 10 mg/dL (Neg-Trace); Specific Gravity, Urine 1.023 (1.002-1.036); Squamous Epithelial None Seen HPF (0-3); Urobilinogen Normal mg/dL (Less than 2); Yeast-Budding 3+ HPF (None Seen)
[2021-08-07 12:57] LABS: Bacteria/HPF 1+ HPF (None Seen)
[2021-08-07 13:17] LABS: INR-International Normal Ratio 0.9; PTT 32.8 sec (22.9-36.1); Prothrombin Time 12.4 sec (12.0-14.7)
[2021-08-07] MEDS ORDERED: Vancomycin 1 GM/200 ML BAG ONE (13:48)
[2021-08-07] MEDS ORDERED: Ondansetron PF 4 MG/2 ML Vial ONE (13:58)
[2021-08-07 14:06] LABS: SARS-CoV-2 NAA Rapid Test Not Detected (NotDetected)
[2021-08-07 14:37] LABS: Lactic Acid 3.9 mmol/L (0.5-2.2)
[2021-08-07] MEDS ORDERED: Ondansetron ODT 4 MG TAB PO PRN (15:47)
[2021-08-07] MEDS ORDERED: Bisacodyl 10 MG SUPP PR PRN (15:47)
[2021-08-07] MEDS ORDERED: Ondansetron PF 4 MG/2 ML Vial IVP PRN (15:47)
[2021-08-07] MEDS ORDERED: Senokot S 8.6-50 MG TAB PO PRN (15:47)
[2021-08-07] MEDS ORDERED: Guaifenesin DM 100-10/5 ML UDCUP PO PRN (15:47)
[2021-08-07] MEDS ORDERED: Bisacodyl 5 MG TAB PO PRN (15:47)
[2021-08-07] MEDS ORDERED: Acetaminophen 650 MG Suppository PR PRN (15:47)
[2021-08-07] MEDS ORDERED: Meropenem 1 GM in Sodium Chloride 0.9% 100 ML IVPB SCH ×2 (18:23→18:30)
[2021-08-07] MEDS ORDERED: Norepinephrine 8 MG/0.9% NS 250 ML IVPB SCH (18:30)
[2021-08-07 18:59] LABS: Actual Bicarbonate (HCO3a) 22.9 mEq/L (22-28); Analyzer IN Cardio ER; Base Excess (BEa) -0.4 mEq/L (-2.0 to +3.0); CO2 Tension 33.3 mmHg (35.0-45.0); Carboxyhemoglobin (COHb) 0.1 gm% (0.0-3.0); Hemoglobin (Hb) 12.2 g/dL (12.0-16.0); Potassium - ABG Lab 2.33 mmol/L (3.70-5.30); pH, Arterial 7.46 (7.35-7.45)
[2021-08-07] MEDS ORDERED: Dextrose 5% in Water 1,000 ML IV PRN (19:20)
[2021-08-07] MEDS ORDERED: Dextrose 50% Abboject 50 ML SYRINGE SLOW IVP PRN (19:20)
[2021-08-07] MEDS ORDERED: Norepinephrine 8 MG/0.9% NS 250 ML ONE (19:38)
[2021-08-07] MEDS ORDERED: Communication Order-Pharmacy FS ONE (19:41)
[2021-08-07 20:18] LABS: Hemoglobin 11.9 g/dL (12.0-16.0); Platelet Count 387 thou/uL (130-400)
[2021-08-07 21:52] VITALS: BMI 22.1
[2021-08-07] MEDS ORDERED: Enoxaparin Sodium 60 MG/0.6 ML SYRINGE SC SCH (22:15)
[2021-08-07] MEDS: Azithromycin 500 MG in Sodium Chloride 0.9% 250 ML 250 ML IVPB SCH (22:21)
[2021-08-08 02:29] LABS: O2 Tension (PaO2), arterial 57.6 mmHg (> 70.0)
[2021-08-08 02:30] LABS: ALV-art Gradient 100.415 mmHg (0-20); Puncture Site LRA
[2021-08-08] MEDS: Meropenem 1 GM in Sodium Chloride 0.9% 100 ML IVPB SCH ×3 (04:34→20:18)
[2021-08-08 05:01] LABS: Hemoglobin 11.1 g/dL (12.0-16.0); Mean Corpuscular HGB CONC 31.7 g/dL (32.0-36.0); Mean Corpuscular Hemoglobin 29.3 pg (27.0-31.0); Mean Corpuscular Volume 92.6 fL (78.0-98.0); Mean Platelet Volume 9.1 fL (7.4-10.4); Platelet Count 367 thou/uL (130-400); RBC Distribution Width 13.5 % (11.5-14.5); Red Blood Cell (RBC) Count 3.78 mill/uL (4.20-5.40); White Blood Cell (WBC) Count 14.6 thou/uL (4.8-10.8)
[2021-08-08 05:18] LABS: Anion Gap 13 mmol/L (10-20); BUN (Urea Nitrogen) 29 mg/dL (9.8-20.1); Band 63 % (5-11); Calc. Creatinine Clearance 74 mL/min (70-130); Calcium 8.4 mg/dL (7.8-10.44); Carbon Dioxide 25 mmol/L (23-31); Chloride 103 mmol/L (98-107); Glucose 366 mg/dL (83-110); Lymphocytes 11 % (21-51); MDiff Complete? YES; Metamyelocyte 7 % (0-0); Myelocyte 1 % (0-0); Neutrophil 18 % (42-75); Sodium 139 mmol/L (136-145)
[2021-08-08 05:28] LABS: Potassium 2.3 mmol/L (3.5-5.1)
[2021-08-08] MEDS: HumaLOG 300 UNITS/3 ML VIAL SC PRN (05:30)
[2021-08-08 06:32] LABS: Magnesium 1.8 mg/dL (1.6-2.6)
[2021-08-08] MEDS ORDERED: Electrolyte Replacement Protocol FS PRN (07:30)
[2021-08-08] MEDS ORDERED: Magnesium 2 GM/50 ML(in water) 2 GM in Premix Bag 1 BAG IVPB SCH (08:00)
[2021-08-08] MEDS ORDERED: Enoxaparin Sodium 40 MG/0.4 ML SYRINGE SC SCH (09:00)
[2021-08-08] MEDS: Potassium Chloride 40 MEQ in Sodium Chloride 0.9% 250 ML 250 ML IVPB SCH ×2 (09:11→13:26)
[2021-08-08] MEDS: Enoxaparin Sodium 60 MG/0.6 ML SYRINGE SC SCH ×2 (09:39→20:18)
[2021-08-08] MEDS: Vancomycin 1 GM in Premix Bag 1 BAG IVPB SCH (14:08)
[2021-08-08 17:08] LABS: Anion Gap 14 mmol/L (10-20); BUN (Urea Nitrogen) 18 mg/dL (9.8-20.1); Calc. Creatinine Clearance 89 mL/min (70-130); Calcium 8.8 mg/dL (7.8-10.44); Carbon Dioxide 25 mmol/L (23-31); Chloride 107 mmol/L (98-107); Glucose 159 mg/dL (83-110); Potassium 3.1 mmol/L (3.5-5.1); Sodium 143 mmol/L (136-145)
[2021-08-08] MEDS: Famotidine/PF 20 mg/2ml Vial SLOW IVP SCH (20:18)
[2021-08-08] MEDS: Azithromycin 500 MG in Sodium Chloride 0.9% 250 ML 250 ML IVPB SCH (20:20)
[2021-08-08] MEDS ORDERED: Potassium Chloride 40 MEQ in Sodium Chloride 0.9% 250 ML 250 ML IVPB SCH (22:00)
[2021-08-09] MEDS: Meropenem 1 GM in Sodium Chloride 0.9% 100 ML IVPB SCH ×3 (05:04→19:52)
[2021-08-09 06:50] LABS: Anion Gap 17 mmol/L (10-20); BUN (Urea Nitrogen) 17 mg/dL (9.8-20.1); Calc. Creatinine Clearance 80 mL/min (70-130); Carbon Dioxide 22 mmol/L (23-31); Chloride 113 mmol/L (98-107); Glucose 167 mg/dL (83-110); Potassium 3.6 mmol/L (3.5-5.1); Sodium 148 mmol/L (136-145)
[2021-08-09 07:29] LABS: Hemoglobin 10.7 g/dL (12.0-16.0); MDiff Complete? YES; Mean Corpuscular HGB CONC 30.4 g/dL (32.0-36.0); Mean Corpuscular Hemoglobin 28.1 pg (27.0-31.0); Mean Corpuscular Volume 92.6 fL (78.0-98.0); Mean Platelet Volume 9.1 fL (7.4-10.4); Platelet Count 344 thou/uL (130-400); RBC Distribution Width 13.7 % (11.5-14.5); Red Blood Cell (RBC) Count 3.79 mill/uL (4.20-5.40); White Blood Cell (WBC) Count 16.3 thou/uL (4.8-10.8)
[2021-08-09 07:30] LABS: Band 29 % (5-11); Lymphocytes 6 % (21-51); Monocytes 4 % (0-10); Neutrophil 60 % (42-75); Platelet Morphology Comment Appears Adequate; Polychromasia SLIGHT = 2-3 cells (100X) (0-2/hpf); Reactive Lymphocytes 1 % (0-10)
[2021-08-09] MEDS: Enoxaparin Sodium 60 MG/0.6 ML SYRINGE SC SCH ×2 (09:38→19:53)
[2021-08-09] MEDS: Dextrose 5 %-0.45 % NaCl 1,000 ML IV SCH ×2 (09:38→18:35)
[2021-08-09] MEDS: Famotidine/PF 20 mg/2ml Vial SLOW IVP SCH ×2 (09:38→19:53)
[2021-08-09] MEDS: HumaLOG 300 UNITS/3 ML VIAL SC PRN ×2 (12:20→17:31)
[2021-08-09 13:26] LABS: Vancomycin, Trough 6.5 ug/mL
[2021-08-09] MEDS: Vancomycin 1 GM in Premix Bag 1 BAG IVPB SCH (13:42)
[2021-08-09] MEDS: Vancomycin HCl 750 MG in Sodium Chloride 0.9% 250 ML 250 ML IVPB SCH (15:12)
[2021-08-09] MEDS: Acetaminophen 325 MG TAB PO PRN (15:20)
[2021-08-09 16:01] LABS: Actual Bicarbonate (HCO3a) 22.5 mEq/L (22-28); Base Excess (BEa) 0.2 mEq/L (-2.0 to +3.0); CO2 Tension 29.1 mmHg (35.0-45.0); Calcium, Ionized (arterial) 1.21 mmol/L (1.12-1.30); Carboxyhemoglobin (COHb) 0.5 gm% (0.0-3.0); Hemoglobin (Hb) 11.3 g/dL (12.0-16.0); O2 Tension (PaO2), arterial 73.5 mmHg (> 70.0); Potassium - ABG Lab 3.03 mmol/L (3.70-5.30); pH, Arterial 7.51 (7.35-7.45)
[2021-08-09 16:02] LABS: ALV-art Gradient 75.505 mmHg (0-20); Puncture Site RRA
[2021-08-09 16:36] LABS: Hemoglobin 10.5 g/dL (12.0-16.0); Mean Corpuscular HGB CONC 31.3 g/dL (32.0-36.0); Mean Corpuscular Hemoglobin 29.1 pg (27.0-31.0); Mean Corpuscular Volume 92.9 fL (78.0-98.0); Mean Platelet Volume 9.3 fL (7.4-10.4); Platelet Count 307 thou/uL (130-400); RBC Distribution Width 13.6 % (11.5-14.5); Red Blood Cell (RBC) Count 3.61 mill/uL (4.20-5.40); White Blood Cell (WBC) Count 13.1 thou/uL (4.8-10.8)
[2021-08-09 16:56] LABS: Band 20 % (5-11); Dohle Bodies SLIGHT; Eosinophils 1 % (0-10); Lymphocytes 10 % (21-51); MDiff Complete? YES; Monocytes 2 % (0-10); Neutrophil 66 % (42-75); Platelet Morphology Comment Appears Adequate; Polychromasia SLIGHT = 2-3 cells (100X) (0-2/hpf); Reactive Lymphocytes 1 % (0-10); Vacuoles SLIGHT
[2021-08-09] MEDS: Azithromycin 500 MG in Sodium Chloride 0.9% 250 ML 250 ML IVPB SCH (21:25)
[2021-08-10] MEDS: Vancomycin HCl 750 MG in Sodium Chloride 0.9% 250 ML 250 ML IVPB SCH (01:42)
[2021-08-10] MEDS: Meropenem 1 GM in Sodium Chloride 0.9% 100 ML IVPB SCH ×3 (03:08→19:54)
[2021-08-10] MEDS: Dextrose 5 %-0.45 % NaCl 1,000 ML IV SCH ×3 (05:20→23:36)
[2021-08-10 07:27] LABS: Anion Gap 13 mmol/L (10-20); BUN (Urea Nitrogen) 13 mg/dL (9.8-20.1); Calc. Creatinine Clearance 97 mL/min (70-130); Calcium 8.7 mg/dL (7.8-10.44); Carbon Dioxide 25 mmol/L (23-31); Chloride 109 mmol/L (98-107); Glucose 201 mg/dL (83-110); Sodium 144 mmol/L (136-145)
[2021-08-10 07:32] LABS: Band 21 % (5-11); Eosinophils 1 % (0-10); Hemoglobin 10.7 g/dL (12.0-16.0); Hypochromia SLIGHT = 6-15 cells (100X) (0-5/hpf); Lymphocytes 6 % (21-51); MDiff Complete? YES; Mean Corpuscular HGB CONC 31.4 g/dL (32.0-36.0); Mean Corpuscular Hemoglobin 29.3 pg (27.0-31.0); Mean Corpuscular Volume 93.2 fL (78.0-98.0); Mean Platelet Volume 9.4 fL (7.4-10.4); Monocytes 3 % (0-10); Myelocyte 1 % (0-0); Neutrophil 65 % (42-75); Platelet Count 289 thou/uL (130-400); Platelet Morphology Comment Appears Adequate; Polychromasia SLIGHT = 2-3 cells (100X) (0-2/hpf); RBC Distribution Width 13.5 % (11.5-14.5); Reactive Lymphocytes 3 % (0-10); Red Blood Cell (RBC) Count 3.64 mill/uL (4.20-5.40); White Blood Cell (WBC) Count 16.2 thou/uL (4.8-10.8)
[2021-08-10 07:37] LABS: Potassium 2.8 mmol/L (3.5-5.1)
[2021-08-10] MEDS: Enoxaparin Sodium 60 MG/0.6 ML SYRINGE SC SCH ×2 (08:31→19:55)
[2021-08-10] MEDS: Famotidine/PF 20 mg/2ml Vial SLOW IVP SCH ×2 (08:31→19:55)
[2021-08-10] MEDS ORDERED: Potassium Chloride 20 MEQ TAB PO SCH (09:00)
[2021-08-10] MEDS: Acetaminophen 325 MG TAB PO PRN ×2 (09:25→16:07)
[2021-08-10] MEDS: Potassium Chloride 20 MEQ in Premix Bag 1 BAG IVPB SCH ×5 (09:36→17:55)
[2021-08-10] MEDS: HumaLOG 300 UNITS/3 ML VIAL SC PRN ×2 (12:01→17:58)
[2021-08-10 13:31] LABS: Vancomycin, Trough 10.3 ug/mL
[2021-08-10] MEDS: Vancomycin 1 GM in Premix Bag 1 BAG IVPB SCH (14:04)
[2021-08-10] MEDS: Azithromycin 500 MG in Sodium Chloride 0.9% 250 ML 250 ML IVPB SCH (22:48)
[2021-08-11] MEDS: Vancomycin 1 GM in Premix Bag 1 BAG IVPB SCH ×2 (01:37→14:53)
[2021-08-11] MEDS: Meropenem 1 GM in Sodium Chloride 0.9% 100 ML IVPB SCH ×3 (03:10→21:20)
[2021-08-11 07:28] LABS: Anion Gap 12 mmol/L (10-20); BUN (Urea Nitrogen) 11 mg/dL (9.8-20.1); Calc. Creatinine Clearance 109 mL/min (70-130); Calcium 8.2 mg/dL (7.8-10.44); Carbon Dioxide 24 mmol/L (23-31); Chloride 103 mmol/L (98-107); Glucose 148 mg/dL (83-110); Potassium 3.6 mmol/L (3.5-5.1); Sodium 135 mmol/L (136-145)
[2021-08-11] MEDS: Enoxaparin Sodium 60 MG/0.6 ML SYRINGE SC SCH ×2 (08:05→21:20)
[2021-08-11] MEDS: Famotidine/PF 20 mg/2ml Vial SLOW IVP SCH ×2 (08:05→21:21)
[2021-08-11 08:38] LABS: Band 41 % (5-11); Eosinophils 2 % (0-10); Hemoglobin 10.9 g/dL (12.0-16.0); Hypochromia SLIGHT = 6-15 cells (100X) (0-5/hpf); Lymphocytes 19 % (21-51); MDiff Complete? YES; Mean Corpuscular HGB CONC 31.3 g/dL (32.0-36.0); Mean Corpuscular Hemoglobin 28.7 pg (27.0-31.0); Mean Corpuscular Volume 91.7 fL (78.0-98.0); Mean Platelet Volume 9.6 fL (7.4-10.4); Monocytes 4 % (0-10); Neutrophil 34 % (42-75); Platelet Count 277 thou/uL (130-400); Platelet Morphology Comment Appears Adequate; RBC Distribution Width 13.1 % (11.5-14.5); Red Blood Cell (RBC) Count 3.79 mill/uL (4.20-5.40); White Blood Cell (WBC) Count 12.8 thou/uL (4.8-10.8)
[2021-08-11] MEDS: Dextrose 5 %-0.45 % NaCl 1,000 ML IV SCH ×2 (10:28→22:31)
[2021-08-11 14:17] LABS: Vancomycin, Trough 12.5 ug/mL
[2021-08-11] MEDS: VANCOMYCIN 1.25 GM/250 ML BAG 1.25 GM in Premix Bag 1 BAG IVPB SCH (14:54)
[2021-08-11] MEDS: HumaLOG 300 UNITS/3 ML VIAL SC PRN (18:09)
[2021-08-11] MEDS: Azithromycin 500 MG in Sodium Chloride 0.9% 250 ML 250 ML IVPB SCH (21:21)
[2021-08-11] MEDS: Acetaminophen 325 MG TAB PO PRN (22:31)
[2021-08-12] MEDS: VANCOMYCIN 1.25 GM/250 ML BAG 1.25 GM in Premix Bag 1 BAG IVPB SCH (03:07)
[2021-08-12] MEDS: Meropenem 1 GM in Sodium Chloride 0.9% 100 ML IVPB SCH (03:08)
[2021-08-12 08:17] LABS: Hemoglobin 10.5 g/dL (12.0-16.0); Mean Corpuscular HGB CONC 31.6 g/dL (32.0-36.0); Mean Corpuscular Hemoglobin 29.1 pg (27.0-31.0); Mean Platelet Volume 9.6 fL (7.4-10.4); Platelet Count 261 thou/uL (130-400); RBC Distribution Width 13.2 % (11.5-14.5); Red Blood Cell (RBC) Count 3.62 mill/uL (4.20-5.40); White Blood Cell (WBC) Count 9.3 thou/uL (4.8-10.8)
[2021-08-12 08:18] LABS: Band 17 % (5-11); Eosinophils 3 % (0-10); Hypochromia SLIGHT = 6-15 cells (100X) (0-5/hpf); Lymphocytes 18 % (21-51); MDiff Complete? YES; Monocytes 11 % (0-10); Neutrophil 44 % (42-75); Platelet Morphology Comment Appears Adequate; Polychromasia SLIGHT = 2-3 cells (100X) (0-2/hpf); Reactive Lymphocytes 6 % (0-10)
[2021-08-12 08:25] LABS: Anion Gap 13 mmol/L (10-20); BUN (Urea Nitrogen) 9 mg/dL (9.8-20.1); Calc. Creatinine Clearance 114 mL/min (70-130); Carbon Dioxide 23 mmol/L (23-31); Chloride 102 mmol/L (98-107); Glucose 102 mg/dL (83-110); Potassium 3.4 mmol/L (3.5-5.1); Sodium 135 mmol/L (136-145)
[2021-08-12] MEDS: Enoxaparin Sodium 60 MG/0.6 ML SYRINGE SC SCH ×2 (08:39→19:31)
[2021-08-12] MEDS: Famotidine/PF 20 mg/2ml Vial SLOW IVP SCH ×2 (08:39→19:31)
[2021-08-12] MEDS: Amoxicillin/Potassium Clav 875 MG TAB PER TUBE SCH ×2 (08:41→19:31)
[2021-08-12] MEDS: Polyethylene Glycol 3350 17 GM Packet PER TUBE SCH (08:41)
[2021-08-12] MEDS: metFORMIN 500 MG TAB PER TUBE SCH ×2 (08:41→16:26)
[2021-08-12] MEDS ORDERED: Potassium Bicarbonate/Cit Ac 20 MEQ TAB PER TUBE SCH (08:45)
[2021-08-12] MEDS: Chlorthalidone 25 MG TAB PER TUBE SCH (09:20)
[2021-08-12] MEDS ORDERED: Fluconazole In NaCl,Iso-Osm 400 MG in Premix Bag 1 BAG IVPB SCH ×2 (17:00→19:45)
[2021-08-13 08:09] LABS: Hemoglobin 10.7 g/dL (12.0-16.0); Platelet Count 256 thou/uL (130-400)
[2021-08-13] MEDS: Fluconazole In NaCl,Iso-Osm 400 MG in Premix Bag 1 BAG IVPB SCH (08:30)
[2021-08-13] MEDS: Enoxaparin Sodium 60 MG/0.6 ML SYRINGE SC SCH ×2 (08:32→19:53)
[2021-08-13] MEDS: Famotidine/PF 20 mg/2ml Vial SLOW IVP SCH ×2 (08:32→19:52)
[2021-08-13] MEDS: Amoxicillin/Potassium Clav 875 MG TAB PER TUBE SCH ×2 (08:33→19:53)
[2021-08-13] MEDS: Polyethylene Glycol 3350 17 GM Packet PER TUBE SCH (08:33)
[2021-08-13] MEDS: Chlorthalidone 25 MG TAB PER TUBE SCH (08:33)
[2021-08-13] MEDS: metFORMIN 500 MG TAB PER TUBE SCH ×2 (08:33→16:16)
[2021-08-13] MEDS ORDERED: Fluconazole In NaCl,Iso-Osm 400 MG in Premix Bag 1 BAG IVPB SCH (09:00)
[2021-08-14] MEDS: Fluconazole In NaCl,Iso-Osm 400 MG in Premix Bag 1 BAG IVPB SCH (08:26)
[2021-08-14] MEDS: Amoxicillin/Potassium Clav 875 MG TAB PER TUBE SCH ×2 (08:27→20:07)
[2021-08-14] MEDS: Chlorthalidone 25 MG TAB PER TUBE SCH (08:27)
[2021-08-14] MEDS: metFORMIN 500 MG TAB PER TUBE SCH ×2 (08:27→17:02)
[2021-08-14] MEDS: Polyethylene Glycol 3350 17 GM Packet PER TUBE SCH (08:27)
[2021-08-14] MEDS: Enoxaparin Sodium 60 MG/0.6 ML SYRINGE SC SCH ×2 (08:27→20:07)
[2021-08-14] MEDS: Famotidine/PF 20 mg/2ml Vial SLOW IVP SCH ×2 (08:27→20:07)
[2021-08-14] MEDS: HumaLOG 300 UNITS/3 ML VIAL SC PRN ×2 (13:44→17:02)
[2021-08-15 06:47] LABS: Anion Gap 16 mmol/L (10-20); BUN (Urea Nitrogen) 9 mg/dL (9.8-20.1); CRP (Inflammatory) 13.17 mg/dL (= or < 0.5); Calc. Creatinine Clearance 101 mL/min (70-130); Calcium 8.6 mg/dL (7.8-10.44); Carbon Dioxide 20 mmol/L (23-31); Chloride 102 mmol/L (98-107); Estimated GFR 101; Glucose 156 mg/dL (83-110); Potassium 3.9 mmol/L (3.5-5.1); Sodium 134 mmol/L (136-145)
[2021-08-15 07:47] LABS: Band 8 % (5-11); Hemoglobin 10.9 g/dL (12.0-16.0); Lymphocytes 13 % (21-51); MDiff Complete? YES; Mean Corpuscular HGB CONC 30.9 g/dL (32.0-36.0); Mean Corpuscular Hemoglobin 27.7 pg (27.0-31.0); Mean Corpuscular Volume 89.9 fL (78.0-98.0); Monocytes 4 % (0-10); Neutrophil 69 % (42-75); Platelet Count 315 thou/uL (130-400); Platelet Morphology Comment Appears Adequate; Polychromasia SLIGHT = 2-3 cells (100X) (0-2/hpf); RBC Distribution Width 13.7 % (11.5-14.5); Reactive Lymphocytes 6 % (0-10); Red Blood Cell (RBC) Count 3.91 mill/uL (4.20-5.40); White Blood Cell (WBC) Count 11.6 thou/uL (4.8-10.8)
[2021-08-15] MEDS: Amoxicillin/Potassium Clav 875 MG TAB PER TUBE SCH ×2 (08:37→19:48)
[2021-08-15] MEDS: Chlorthalidone 25 MG TAB PER TUBE SCH (08:37)
[2021-08-15] MEDS: metFORMIN 500 MG TAB PER TUBE SCH ×2 (08:37→17:35)
[2021-08-15] MEDS: Enoxaparin Sodium 60 MG/0.6 ML SYRINGE SC SCH ×2 (08:37→19:48)
[2021-08-15] MEDS: Fluconazole In NaCl,Iso-Osm 400 MG in Premix Bag 1 BAG IVPB SCH (08:38)
[2021-08-15] MEDS: Famotidine/PF 20 mg/2ml Vial SLOW IVP SCH ×2 (08:38→19:48)
[2021-08-15] MEDS: Polyethylene Glycol 3350 17 GM Packet PER TUBE SCH (08:38)
[2021-08-16 06:58] LABS: Hemoglobin 10.9 g/dL (12.0-16.0); Platelet Count 435 thou/uL (130-400)
[2021-08-16] MEDS: Fluconazole In NaCl,Iso-Osm 400 MG in Premix Bag 1 BAG IVPB SCH (08:11)
[2021-08-16] MEDS: metFORMIN 500 MG TAB PER TUBE SCH ×2 (08:14→18:09)
[2021-08-16] MEDS: Enoxaparin Sodium 60 MG/0.6 ML SYRINGE SC SCH ×2 (08:14→21:31)
[2021-08-16] MEDS: Famotidine/PF 20 mg/2ml Vial SLOW IVP SCH ×2 (08:14→21:31)
[2021-08-16] MEDS: Amoxicillin/Potassium Clav 875 MG TAB PER TUBE SCH ×2 (08:14→21:31)
[2021-08-16] MEDS: Chlorthalidone 25 MG TAB PER TUBE SCH (08:14)
[2021-08-16] MEDS: Polyethylene Glycol 3350 17 GM Packet PER TUBE SCH (08:15)
[2021-08-17] MEDS: Fluconazole In NaCl,Iso-Osm 400 MG in Premix Bag 1 BAG IVPB SCH (08:53)
[2021-08-17] MEDS: Amoxicillin/Potassium Clav 875 MG TAB PER TUBE SCH ×2 (08:53→20:20)
[2021-08-17] MEDS: metFORMIN 500 MG TAB PER TUBE SCH ×2 (08:53→17:05)
[2021-08-17] MEDS: Chlorthalidone 25 MG TAB PER TUBE SCH (08:53)
[2021-08-17] MEDS: Enoxaparin Sodium 60 MG/0.6 ML SYRINGE SC SCH ×2 (08:53→20:20)
[2021-08-17] MEDS: Polyethylene Glycol 3350 17 GM Packet PER TUBE SCH (08:53)
[2021-08-17] MEDS: Famotidine/PF 20 mg/2ml Vial SLOW IVP SCH ×2 (08:53→20:19)
[2021-08-18] MEDS: Fluconazole In NaCl,Iso-Osm 400 MG in Premix Bag 1 BAG IVPB SCH (09:11)
[2021-08-18] MEDS: Enoxaparin Sodium 60 MG/0.6 ML SYRINGE SC SCH ×2 (09:12→20:33)
[2021-08-18] MEDS: Chlorthalidone 25 MG TAB PER TUBE SCH (09:13)
[2021-08-18] MEDS: Famotidine/PF 20 mg/2ml Vial SLOW IVP SCH ×2 (09:13→20:19)
[2021-08-18] MEDS: metFORMIN 500 MG TAB PER TUBE SCH ×2 (09:13→18:20)
[2021-08-18] MEDS: Amoxicillin/Potassium Clav 875 MG TAB PER TUBE SCH ×2 (09:13→20:17)
[2021-08-18] MEDS: Polyethylene Glycol 3350 17 GM Packet PER TUBE SCH (09:14)
[2021-08-18] MEDS: HumaLOG 300 UNITS/3 ML VIAL SC PRN (20:32)
[2021-08-19 10:06] LABS: Hemoglobin 11.4 g/dL (12.0-16.0); Platelet Count 683 thou/uL (130-400)
[2021-08-19] MEDS: metFORMIN 500 MG TAB PER TUBE SCH ×2 (10:13→17:31)
[2021-08-19] MEDS: Polyethylene Glycol 3350 17 GM Packet PER TUBE SCH (10:13)
[2021-08-19] MEDS: Enoxaparin Sodium 60 MG/0.6 ML SYRINGE SC SCH ×2 (10:13→20:13)
[2021-08-19] MEDS: Famotidine/PF 20 mg/2ml Vial SLOW IVP SCH ×2 (10:13→20:12)
[2021-08-19] MEDS: Fluconazole In NaCl,Iso-Osm 400 MG in Premix Bag 1 BAG IVPB SCH (10:13)
[2021-08-19] MEDS: Chlorthalidone 25 MG TAB PER TUBE SCH (10:14)
[2021-08-19] MEDS: Amoxicillin/Potassium Clav 875 MG TAB PER TUBE SCH ×2 (10:14→20:13)
[2021-08-19] MEDS: HumaLOG 300 UNITS/3 ML VIAL SC PRN ×2 (13:47→20:13)
[2021-08-20 06:43] LABS: Anion Gap 22 mmol/L (10-20); BUN (Urea Nitrogen) 26 mg/dL (9.8-20.1); CRP (Inflammatory) 3.69 mg/dL (= or < 0.5); Calc. Creatinine Clearance 70 mL/min (70-130); Calcium 10.8 mg/dL (7.8-10.44); Carbon Dioxide 21 mmol/L (23-31); Chloride 98 mmol/L (98-107); Estimated GFR 92; Glucose 227 mg/dL (83-110); Sodium 134 mmol/L (136-145)
[2021-08-20 06:54] LABS: Potassium 7.2 mmol/L (3.5-5.1)
[2021-08-20 07:52] LABS: Band 2 % (5-11); Eosinophils 1 % (0-10); Hemoglobin 12.7 g/dL (12.0-16.0); Lymphocytes 41 % (21-51); MDiff Complete? YES; Mean Corpuscular HGB CONC 35.9 g/dL (32.0-36.0); Mean Corpuscular Hemoglobin 32.4 pg (27.0-31.0); Mean Corpuscular Volume 90.4 fL (78.0-98.0); Monocytes 8 % (0-10); Neutrophil 48 % (42-75); Platelet Count 592 thou/uL (130-400); Platelet Morphology Comment Appears Increased; RBC Distribution Width 14.6 % (11.5-14.5); RBC Morphology Normal; Red Blood Cell (RBC) Count 3.92 mill/uL (4.20-5.40); White Blood Cell (WBC) Count 15.6 thou/uL (4.8-10.8)
[2021-08-20] MEDS: Fluconazole In NaCl,Iso-Osm 400 MG in Premix Bag 1 BAG IVPB SCH (08:15)
[2021-08-20] MEDS: Famotidine/PF 20 mg/2ml Vial SLOW IVP SCH ×2 (08:15→20:36)
[2021-08-20] MEDS: Chlorthalidone 25 MG TAB PER TUBE SCH (08:16)
[2021-08-20] MEDS: metFORMIN 500 MG TAB PER TUBE SCH ×2 (08:16→16:32)
[2021-08-20] MEDS: Polyethylene Glycol 3350 17 GM Packet PER TUBE SCH (08:16)
[2021-08-20] MEDS: Enoxaparin Sodium 60 MG/0.6 ML SYRINGE SC SCH ×2 (08:16→20:36)
[2021-08-20 09:24] LABS: Potassium 4.2 mmol/L (3.5-5.1)
[2021-08-20] MEDS: Acetaminophen 325 MG TAB PO PRN (20:36)
[2021-08-20] MEDS: HumaLOG 300 UNITS/3 ML VIAL SC PRN (20:51)
[2021-08-21] MEDS: HumaLOG 300 UNITS/3 ML VIAL SC PRN (06:00)
[2021-08-21 07:33] LABS: Anion Gap 18 mmol/L (10-20); BUN (Urea Nitrogen) 24 mg/dL (9.8-20.1); Calc. Creatinine Clearance 76 mL/min (70-130); Calcium 9.9 mg/dL (7.8-10.44); Carbon Dioxide 24 mmol/L (23-31); Chloride 95 mmol/L (98-107); Estimated GFR 94; Potassium 4.9 mmol/L (3.5-5.1); Sodium 132 mmol/L (136-145)
[2021-08-21 07:42] LABS: Hemoglobin 11.3 g/dL (12.0-16.0); Mean Corpuscular HGB CONC 32.1 g/dL (32.0-36.0); Mean Corpuscular Hemoglobin 28.7 pg (27.0-31.0); Mean Corpuscular Volume 89.7 fL (78.0-98.0); Platelet Count 632 thou/uL (130-400); RBC Distribution Width 14.6 % (11.5-14.5); Red Blood Cell (RBC) Count 3.92 mill/uL (4.20-5.40); White Blood Cell (WBC) Count 10.2 thou/uL (4.8-10.8)
[2021-08-21 07:44] LABS: Glucose 205 mg/dL (83-110)
[2021-08-21 08:59] LABS: Lymphocytes 34 % (21-51); MDiff Complete? YES; Monocytes 5 % (0-10); Neutrophil 61 % (42-75); Platelet Morphology Comment Appears Increased; Polychromasia SLIGHT = 2-3 cells (100X) (0-2/hpf)
[2021-08-21] MEDS: Chlorthalidone 25 MG TAB PER TUBE SCH (09:04)
[2021-08-21] MEDS: Polyethylene Glycol 3350 17 GM Packet PER TUBE SCH (09:05)
[2021-08-21] MEDS: Enoxaparin Sodium 60 MG/0.6 ML SYRINGE SC SCH ×2 (09:05→21:44)
[2021-08-21] MEDS: Famotidine/PF 20 mg/2ml Vial SLOW IVP SCH ×2 (09:05→21:44)
[2021-08-21] MEDS: Fluconazole In NaCl,Iso-Osm 400 MG in Premix Bag 1 BAG IVPB SCH (09:05)
[2021-08-21] MEDS: metFORMIN 500 MG TAB PER TUBE SCH ×2 (09:05→17:43)
[2021-08-22 05:41] LABS: Hemoglobin 11.1 g/dL (12.0-16.0); Platelet Count 716 thou/uL (130-400)
[2021-08-22] MEDS: Chlorthalidone 25 MG TAB PER TUBE SCH (08:53)
[2021-08-22] MEDS: Enoxaparin Sodium 60 MG/0.6 ML SYRINGE SC SCH ×2 (08:54→21:53)
[2021-08-22] MEDS: Famotidine/PF 20 mg/2ml Vial SLOW IVP SCH ×2 (08:54→21:53)
[2021-08-22] MEDS: Micafungin 100 MG in Sodium Chloride 0.9% 100 ML IVPB SCH (08:54)
[2021-08-22] MEDS: metFORMIN 500 MG TAB PER TUBE SCH ×2 (08:54→18:36)
[2021-08-22] MEDS: Polyethylene Glycol 3350 17 GM Packet PER TUBE SCH (08:55)
[2021-08-22 12:00] LABS: Ref Lab Test Ordered YEAST ID & SUSC; Reference Lab Name LABCORP
[2021-08-23] MEDS: Polyethylene Glycol 3350 17 GM Packet PER TUBE SCH (07:03)
[2021-08-23] MEDS: Micafungin 100 MG in Sodium Chloride 0.9% 100 ML IVPB SCH (08:20)
[2021-08-23] MEDS: Chlorthalidone 25 MG TAB PER TUBE SCH (08:20)
[2021-08-23] MEDS: metFORMIN 500 MG TAB PER TUBE SCH ×2 (08:21→15:57)
[2021-08-23] MEDS: Famotidine/PF 20 mg/2ml Vial SLOW IVP SCH ×2 (08:21→21:06)
[2021-08-23] MEDS: Enoxaparin Sodium 60 MG/0.6 ML SYRINGE SC SCH ×2 (08:22→21:06)
[2021-08-23] MEDS: HumaLOG 300 UNITS/3 ML VIAL SC PRN (16:46)
[2021-08-24 06:56] LABS: #Basophils 0.1 thou/uL (0.0-0.2); #Lymphocytes 3.4 thou/uL (1.20-3.40); #Monocytes 0.9 thou/uL (0.11-0.59); #Neutrophils 6.3 thou/uL (1.40-6.50); %Basophils 0.5 % (0.0-1.0); %Eosinophils 0.2 % (0.0-10.0); %Lymphocytes 31.9 % (21.0-51.0); %Monocytes 8.2 % (0.0-10.0); %Neutrophils 59.2 % (42.0-75.0); Hemoglobin 12.3 g/dL (12.0-16.0); Mean Corpuscular HGB CONC 31.9 g/dL (32.0-36.0); Mean Platelet Volume 7.8 fL (7.4-10.4); Platelet Count 792 thou/uL (130-400); RBC Distribution Width 14.6 % (11.5-14.5); Red Blood Cell (RBC) Count 4.23 mill/uL (4.20-5.40); White Blood Cell (WBC) Count 10.7 thou/uL (4.8-10.8)
[2021-08-24 07:13] LABS: Anion Gap 16 mmol/L (10-20); BUN (Urea Nitrogen) 21 mg/dL (9.8-20.1); Calc. Creatinine Clearance 84 mL/min (70-130); Calcium 10.3 mg/dL (7.8-10.44); Carbon Dioxide 26 mmol/L (23-31); Chloride 97 mmol/L (98-107); Estimated GFR 97; Glucose 130 mg/dL (83-110); Potassium 4.1 mmol/L (3.5-5.1); Sodium 135 mmol/L (136-145)
[2021-08-24] MEDS: Famotidine/PF 20 mg/2ml Vial SLOW IVP SCH ×2 (08:59→20:37)
[2021-08-24] MEDS: Enoxaparin Sodium 60 MG/0.6 ML SYRINGE SC SCH ×2 (08:59→20:37)
[2021-08-24] MEDS: metFORMIN 500 MG TAB PER TUBE SCH ×2 (08:59→17:33)
[2021-08-24] MEDS: Chlorthalidone 25 MG TAB PER TUBE SCH (09:00)
[2021-08-24] MEDS: Polyethylene Glycol 3350 17 GM Packet PER TUBE SCH (09:00)
[2021-08-24] MEDS: Micafungin 100 MG in Sodium Chloride 0.9% 100 ML IVPB SCH (09:01)
[2021-08-24] MEDS: HumaLOG 300 UNITS/3 ML VIAL SC PRN (21:18)
[2021-08-25 06:41] LABS: #Basophils 0.1 thou/uL (0.0-0.2); #Eosinphils 0.1 thou/uL (0.0-0.7); #Lymphocytes 3.6 thou/uL (1.20-3.40); #Monocytes 0.8 thou/uL (0.11-0.59); #Neutrophils 3.9 thou/uL (1.40-6.50); %Eosinophils 0.8 % (0.0-10.0); %Lymphocytes 42.7 % (21.0-51.0); %Monocytes 9.4 % (0.0-10.0); %Neutrophils 46.1 % (42.0-75.0); Hemoglobin 12.1 g/dL (12.0-16.0); Mean Corpuscular HGB CONC 31.9 g/dL (32.0-36.0); Mean Corpuscular Hemoglobin 28.9 pg (27.0-31.0); Mean Corpuscular Volume 90.8 fL (78.0-98.0); Mean Platelet Volume 8.1 fL (7.4-10.4); Platelet Count 686 thou/uL (130-400); Platelet Count 743 thou/uL (130-400); RBC Distribution Width 14.3 % (11.5-14.5); Red Blood Cell (RBC) Count 4.19 mill/uL (4.20-5.40); White Blood Cell (WBC) Count 8.4 thou/uL (4.8-10.8)
[2021-08-25 07:10] LABS: Anion Gap 16 mmol/L (10-20); BUN (Urea Nitrogen) 28 mg/dL (9.8-20.1); Calc. Creatinine Clearance 83 mL/min (70-130); Calcium 10.2 mg/dL (7.8-10.44); Carbon Dioxide 28 mmol/L (23-31); Chloride 96 mmol/L (98-107); Estimated GFR 96; Glucose 138 mg/dL (83-110); Potassium 4.2 mmol/L (3.5-5.1); Sodium 136 mmol/L (136-145)
[2021-08-25] MEDS: Enoxaparin Sodium 60 MG/0.6 ML SYRINGE SC SCH (09:10)
[2021-08-25] MEDS: metFORMIN 500 MG TAB PER TUBE SCH ×2 (09:10→17:05)
[2021-08-25] MEDS: Famotidine/PF 20 mg/2ml Vial SLOW IVP SCH ×2 (09:10→20:17)
[2021-08-25] MEDS: Micafungin 100 MG in Sodium Chloride 0.9% 100 ML IVPB SCH (09:10)
[2021-08-25] MEDS: Polyethylene Glycol 3350 17 GM Packet PER TUBE SCH (09:10)
[2021-08-25] MEDS: Chlorthalidone 25 MG TAB PER TUBE SCH (10:06)
[2021-08-25] MEDS: HumaLOG 300 UNITS/3 ML VIAL SC PRN ×2 (17:05→20:22)
[2021-08-26] MEDS: Famotidine/PF 20 mg/2ml Vial SLOW IVP SCH ×2 (08:47→20:26)
[2021-08-26] MEDS: Micafungin 100 MG in Sodium Chloride 0.9% 100 ML IVPB SCH (08:47)
[2021-08-26] MEDS: metFORMIN 500 MG TAB PER TUBE SCH ×2 (08:48→16:41)
[2021-08-26] MEDS: Polyethylene Glycol 3350 17 GM Packet PER TUBE SCH (08:48)
[2021-08-26] MEDS: Chlorthalidone 25 MG TAB PER TUBE SCH (08:48)
[2021-08-26] MEDS: Enoxaparin Sodium 40 MG/0.4 ML SYRINGE SC SCH (08:48)
[2021-08-26] MEDS: HumaLOG 300 UNITS/3 ML VIAL SC PRN (16:41)
[2021-08-27] MEDS: metFORMIN 500 MG TAB PER TUBE SCH (09:47)
[2021-08-27] MEDS: Chlorthalidone 25 MG TAB PER TUBE SCH (09:47)
[2021-08-27] MEDS: Famotidine/PF 20 mg/2ml Vial SLOW IVP SCH (09:47)
[2021-08-27] MEDS: Micafungin 100 MG in Sodium Chloride 0.9% 100 ML IVPB SCH (09:48)
[2021-08-27] MEDS: Enoxaparin Sodium 40 MG/0.4 ML SYRINGE SC SCH (09:48)
[2021-08-27] MEDS: Polyethylene Glycol 3350 17 GM Packet PER TUBE SCH (09:48)
[2021-08-27] MEDS: HumaLOG 300 UNITS/3 ML VIAL SC PRN (12:38)
[2021-08-27 13:12] VITALS: BP 101/71; TEMP 98.2
== END 2021-08-27 13:10 | disposition swing bed (61) | DRG 698 ==
LOC: ERS 10:30 → ERHOLD 14:26 → CCU 20:20 → T4-B 08-08 14:53
PROVIDERS: ADMIT Internal Medicine; ATTEND Internal Medicine
PROC: 3E04329 Introduction of Other Anti-infective into Central Vein, Percutaneous Approach (ICD-10-PCS; principal; 2021-08-07)
PROC: 3E043XZ Introduction of Vasopressor into Central Vein, Percutaneous Approach (ICD-10-PCS; 2021-08-07)
PROC: B543ZZZ Ultrasonography of Right Jugular Veins (ICD-10-PCS; 2021-08-07)
PROC: 02H633Z Insertion of Infusion Device into Right Atrium, Percutaneous Approach (ICD-10-PCS; 2021-08-08)
PROC: B548ZZA Ultrasonography of Superior Vena Cava, Guidance (ICD-10-PCS; 2021-08-08)
DX: T83.511A Infection and inflammatory reaction due to indwelling urethral catheter, initial encounter (principal); L89.224 Pressure ulcer of left hip, stage 4; T80.218A Other infection due to central venous catheter, initial encounter; L89.214 Pressure ulcer of right hip, stage 4; J96.01 Acute respiratory failure with hypoxia; R65.21 Severe sepsis with septic shock; E43 Unspecified severe protein-calorie malnutrition; J69.0 Pneumonitis due to inhalation of food and vomit; B37.7 Candidal sepsis; R64 Cachexia; E87.0 Hyperosmolality and hypernatremia; B37.89 Other sites of candidiasis; B37.41 Candidal cystitis and urethritis; Z20.822 Contact with and (suspected) exposure to COVID-19; G30.9 Alzheimer's disease, unspecified; F02.80 Dementia in other diseases classified elsewhere, unspecified severity, without behavioral disturbance, psychotic disturbance, mood disturbance, and anxiety; E11.9 Type 2 diabetes mellitus without complications; E78.5 Hyperlipidemia, unspecified; K21.9 Gastro-esophageal reflux disease without esophagitis; E87.6 Hypokalemia; E86.9 Volume depletion, unspecified; E86.0 Dehydration; F01.50 Vascular dementia, unspecified severity, without behavioral disturbance, psychotic disturbance, mood disturbance, and anxiety; Y84.8 Other medical procedures as the cause of abnormal reaction of the patient, or of later complication, without mention of misadventure at the time of the procedure; Y95 Nosocomial condition; Z93.1 Gastrostomy status; Z88.8 Allergy status to other drugs, medicaments and biological substances; Z91.018 Allergy to other foods; Z79.899 Other long term (current) drug therapy; Z79.84 Long term (current) use of oral hypoglycemic drugs; I69.220 Aphasia following other nontraumatic intracranial hemorrhage; I69.291 Dysphagia following other nontraumatic intracranial hemorrhage; Z74.01 Bed confinement status; Z68.22 Body mass index [BMI] 22.0-22.9, adult; Z83.3 Family history of diabetes mellitus; Z84.1 Family history of disorders of kidney and ureter; Z82.49 Family history of ischemic heart disease and other diseases of the circulatory system; Z87.440 Personal history of urinary (tract) infections
CPT/HCPCS: 36415; 36416; 36556; 36600; 71045; 80048; 80053; 80202; 81003; 81015; 82805; 83605; 83735; 84145; 85014; 85018; 85025; 85049; 85610; 85730; 86140; 87040; 87086; 94760; 96361; 96365; 96367; 96375; 97139; J0456; J0692; J1450; J1650; J1815; J2185; J2248; J2405; J3370; J3475; J3480; J3490; J7042; J7050; S0028; U0003; U0005

== ENCOUNTER 2022-12-10 23:25 | Emergency (ER) | payer MEDICARE, OTHER | END 2022-12-10 23:35 | disposition E | LOC: EEVIPCON 23:25 → ERS 23:25 | DX: I46.9 Cardiac arrest, cause unspecified (principal); E11.9 Type 2 diabetes mellitus without complications | CPT/HCPCS: 31500; 43762; 96374; 96375 ==